=== PATIENT | male | born 1940 | race Caucasian/White ===

== ENCOUNTER → 2016-07-19 | Outpatient (CLI) | payer MEDICARE ==
--- NOTE | 2016-07-19 13:46 | XR ---
EXAMINATION TYPE: XR chest 2V DATE OF EXAM: 07/19/2016 12:29 PM COMPARISON: None HISTORY: 76-year-old male chronic thromboembolic disease, hypertension. TECHNIQUE: Frontal and lateral views FINDINGS: Heart is normal size. Aorta within normal limits. Some strandy perihilar atelectasis is noted. No con solidation or pleural effusion. Bridging anterior endplate spondylosis suggesting dish. There is a no dular density at the posterior mid lung on the lateral view. IMPRESSION: 1. Strandy areas of atelectasis. No acute cardiopulmonary process. 2. Unable to exclude a posterior midlung pulmonary nodule as seen on the lateral view. A contrast enh anced CT could further evaluate. If there is question of chronic thromboembolic disease, the exam cou ld be performed as a CTA.
--- NOTE | 2016-07-19 15:16 | NM ---
EXAMINATION TYPE: NM pul vent and perfuse DATE OF EXAM: 07/19/2016 2:27 PM COMPARISON: Correlation radiograph same day HISTORY: 76-year-old male chronic thromboembolic hypertension. TECHNIQUE: Utilizing inhalation of 71.1 mCi Tc 99m DTPA aerosol and intravenous injection of 5.5 mCi of Tc 99m MAA, ventilation and perfusion images are acquired post injection in multiple projections. Given patient's history of pulmonary arterial hypertension, low particle protocol was utilized. 100, 000 to 200,000 particles were administered. FINDINGS: Normal radiotracer distribution is noted in the lungs. No mismatched perfusion defect is identified. IMPRESSION: Low probability for pulmonary embolus.
== END | disposition home or self-care (01) ==
LOC: RADNMMAIN 12:10
PROVIDERS: ATTEND Internal Medicine
DX: J98.11 Atelectasis (principal)
CPT/HCPCS: 71020; 78582; A9540; A9567

== ENCOUNTER → 2017-10-22 | Outpatient (CLI) | payer MEDICARE ==
[2017-10-22 14:32] LABS: Basophils # (A) 0.1 k/uL (0-0.2); Basophils % (A) 1 %; Eosinophils # (A) 0.2 k/uL (0-0.7); Eosinophils % (A) 2 %; HCT 43.6 % (39.0-53.0); HGB 14.6 gm/dL (13.0-17.5); Lymphocytes # (A) 1.3 k/uL (1.0-4.8); Lymphocytes % (A) 20 %; MCH 30.1 pg (25.0-35.0); MCHC 33.5 g/dL (31.0-37.0); MCV 89.8 fL (80.0-100.0); Mean Platelet Volume 7.1; Monocytes # (A) 0.4 k/uL (0-1.0); Monocytes % (A) 6 %; Neutrophils # (A) 4.7 k/uL (1.3-7.7); Neutrophils % (A) 69 %; Platelet Count 228 k/uL (150-450); RBC 4.85 m/uL (4.30-5.90); RDW 13.7 % (11.5-15.5); WBC 6.8 k/uL (3.8-10.6)
[2017-10-22 14:40] LABS: INR 1.1 (<1.2); Partial Thromboplastin Time 23.3 sec (22.0-30.0); Prothrombin Time 10.5 sec (9.0-12.0)
== END | disposition home or self-care (01) ==
LOC: LABPAT 13:48
PROVIDERS: ATTEND Anesthesiology
DX: Z01.812 Encounter for preprocedural laboratory examination (principal)
CPT/HCPCS: 36415; 84132; 85025; 85610; 85730

== ENCOUNTER 2017-10-26 14:00 | Inpatient (IN) | payer MEDICARE ==
[2017-10-26] MEDS ORDERED: NALOXONE 0.4 MG/ML 1 ML VIAL IV PRN (14:53)
[2017-10-26] MEDS ORDERED: ACETAMINOPHEN TAB 325 MG TAB PO PRN (14:53)
[2017-10-26] MEDS ORDERED: ALLOPURINOL 100 MG TAB PO PRN (14:56)
[2017-10-26] MEDS ORDERED: SODIUM CHLORIDE 0.9% 1,000 ML IV STA (14:57)
[2017-10-26] MEDS: CARVEDILOL 12.5 MG TAB PO SCH (17:21)
--- NOTE | 2017-10-26 18:12 | P.HPIM ---
History of Present Illness H&P Date: 10/26/17 Chief Complaint: SOB 77-year-old male with history of multiple medical problems as detailed below presented to the hospital for elective surgery. He was supposed to have Zulay fundoplication but because of abnormal lab work I was called by the surgeon to admit the patient to the hospital for further evaluation and management. His creatinine was found to be elevated at 2.5 which is unknown for the patient. Patient is not aware of any kidney issues in the past. Patient told me that he has been having progressively worsening exertional shortness of breath, dizziness and weakness over the last several years but symptoms are especially worse over the last several days/weeks. Patient is not able to walk even a block without having the symptoms. He was not evaluated for these symptoms in the past. He denied having any chest pain on exertion. No palpitations. Acid reflux symptoms have been bothering him lately and that is why he was going to have the surgery. He also has chronic nausea and dyspepsia but no vomiting. Of note patient was diagnosed with pulmonary embolism 5 years ago and he has been taking a blood thinner since then. He denied any syncope, loss of consciousness, blurry or double vision, urinary symptoms, diarrhea, focal weakness or numbness. Review of Systems 12 point review of system performed, negative except HPI Past Medical History Past Medical History: Blood Disorder, GERD/Reflux, Hyperlipidemia, Hypertension , Pulmonary Embolus (PE), Sleep Apnea/CPAP/BIPAP Additional Past Medical History / Comment(s): gout, occasional heart palipitations. factor V-liden, swelling on legs on occasion, cpap, arthritis, hiatal hernia, dizzy when bending over History of Any Multi-Drug Resistant Organisms: None Reported Past Surgical History: Cholecystectomy, Heart Catheterization Additional Past Surgical History / Comment(s): rt cataract surgery, Past Anesthesia/Blood Transfusion Reactions: Motion Sickness Additional Past Anesthesia/Blood Transfusion Reaction / Comment(s): clausterphobia Smoking Status: Never smoker Past Alcohol Use History: Occasional - Past Family History Brother(s) Family Medical History: Cancer Additional Family Medical History / Comment(s): 3 brothers with cancer-2 passed from cancer. 1 brother with factor V Father Family Medical History: No Reported History Additional Family Medical History / Comment(s): at age 90 from old age Mother Family Medical History: Hypertension, Myocardial Infarction ([place]) Additional Family Medical History / Comment(s): gout. mom at ge 75 Medications and Allergies Home Medications Medication Instructions Recorded Confirmed Type Allopurinol [Zyloprim] 100 mg PO Q48H 10/18/17 10/26/17 History Carvedilol [Coreg] 25 mg PO BID 10/18/17 10/26/17 History Cholecalciferol (Vitamin D3) 2,000 unit PO DAILY 10/18/17 10/26/17 History [Vitamin D3] Fenofibrate Nanocrystallized 145 mg PO DAILY 10/18/17 10/26/17 History [Fenofibrate] Ferrous Sulfate [Feosol] 325 mg PO BID 10/18/17 10/26/17 History Folic Acid 0.8 mg PO DAILY 10/18/17 10/26/17 History Furosemide [Lasix] 40 mg PO DAILY 10/18/17 10/26/17 History Rivaroxaban [Xarelto] 20 mg PO DAILY 10/18/17 10/26/17 History Spironolactone [Aldactone] 50 mg PO DAILY 10/18/17 10/26/17 History Vitamin B Complex 1 cap PO DAILY 10/18/17 10/26/17 History Valsartan [Diovan] 320 mg PO DAILY 10/26/17 10/26/17 History Allergies Allergy/AdvReac Type Severity Reaction Status Date / Time No Known Allergies Allergy Verified 10/26/17 16:04 Physical Exam Vitals: Vital Signs Temp Pulse Resp BP Pulse Ox 10/26/17 15:00 97.2 F L 73 16 102/61 94 L Intake and Output 10/26/17 10/26/17 10/26/17 06:59 14:59 22:59 Other: Weight 102.7 kg Constitutional: No acute distress, conversant, pleasant Eyes:Anicteric sclerae, moist conjunctiva, no lid-lag, PERRLA, ENMT: Oropharynx clear, no erythema, exudates Neck: Supple, FROM, no masses, or JVD, No carotid bruits, No thyromegaly Lungs: Clear to auscultation, Clear to percussion, Normal respiratory effort, no accessory muscle use Cardiovascular: Heart regular in rate and rhythm, No murmurs, gallops, or rubs, No peripheral edema Abdominal: Soft, Nontender, no guarding, rebound or rigidity, Normoactive bowel sounds, No hepatomegaly, No splenomegaly, No palpable mass Skin: Normal temperature, tone, texture, turgor, no induration, No subcutaneous nodules, No rash, lesions, No ulcers Extremities: No digital cyanosis, No clubbing, Pedal pulses intact and symmetrical, Radial pulses intact and symmetrical, No calf tenderness Psychiatric: Alert and oriented to person, place and time, appropriate affect, intact judgement Neuro: Muscles Strength 5/5 in all 4 extremities, Sensation to light touch grossly present throughout, Cranial nerves II-XII grossly intact, no focal sensory deficits Thrombosis Risk Factor Assmnt - Choose All That Apply Any of the Below Risk Factors Present?: Yes Each Factor Represents 1 point: Medical pt on bed rest Other Risk Factors: Yes Each Risk Factor Represents 3 Points: Age 75 years or older Other congenital or acquired thrombophilia - If yes, enter type in comment: No Thrombosis Risk Factor Assessment Total Risk Factor Score: 4 Thrombosis Risk Factor Assessment Level: Moderate Risk Assessment and Plan Plan: Shortness of breath, dizziness and weakness Echocardiogram reviewed from 2 years ago, EF was within normal limits but showed pulmonary hypertension, moderate which could be causing patient symptoms Obtain chest x-ray, EKG, troponin, BNP Cardiology consult and pulmonary consult Obtain records from Dr. Johnson's office Renal failure Unclear if acute or chronic Obtain records from primary care physician's office, discussed with nurse IV fluids Avoid nephrotoxic medications Hold Lasix, spironolactone and valsartan Essential hypertension Continue Coreg, hold valsartan and diuretics Monitor blood pressure History of factor V Leiden/history of PE Continue xarelto GERD/Reflux, Hyperlipidemia, gout Stable Resume home meds
--- NOTE | 2017-10-26 19:11 | P.CNPUL ---
History of Present Illness Consult date: 10/26/17 Reason for consult: dyspnea History of present illness: This patient is 77 and has symptomatic hiatal hernia. The patient was supposed to have an outpatient Zulay fundoplication today. Blood work was done and the patient was found to be in acute kidney failure with a creatinine of 2.5 and for that reason the patient was referred and admitted to the hospital and pulmonary cusp station was requested as the patient was complaining of some increased shortness of breath. No chest pain. He is currently on room air. No cough sputum production chest tightness or wheezing. He has noted to be slightly more short of breath over the past few days. No aspiration. The patient has been taken only liquid diet and same time his oral intake has diminished and the patient is also on accommodation of Lasix and Aldactone. He is not aware of any previous history of kidney disease or disorder. He has not taken any form of nonsteroidal anti-inflammatory medications. He has normal coronaries based on a previous cardiac catheterization that showed no coronary artery disease. He has a history of obstructive sleep apnea, severe maintained on CPAP at a pressure of 11 cm of water. He has a remote history of DVT and pulmonary embolism and has been found to have factor V Leyden and his last episode was approximately 5 years ago and since then the patient has been on long-term anticoagulation is currently on Xarelto. His other comorbidities include hypertension, hyperlipidemia and acid reflux. No reported aspiration.He is resting comfortably in bed. His chest x-ray shows small lung volumes without any acute abnormalities noted. No airspace disease per no pneumothorax. No pleural effusion. He is known to have hypertension and preoperatively the patient was seen by Dr. Philip on 08/22/2017 and the patient was given clearance for the surgery. Review of Systems A 12 point review of system was done and the positive findings are almost above history of present illness Past Medical History Past Medical History: Blood Disorder, GERD/Reflux, Hyperlipidemia, Hypertension , Pulmonary Embolus (PE), Sleep Apnea/CPAP/BIPAP Additional Past Medical History / Comment(s): Factor V Leyden, previous history of DVT and pulmonary embolism, obstructive sleep apnea with an AHI of 43 currently on scene at a pressure of 11, hypertension, hyperlipidemia, acid reflux, hiatal hernia,, gout History of Any Multi-Drug Resistant Organisms: None Reported Past Surgical History: Cholecystectomy, Heart Catheterization Additional Past Surgical History / Comment(s): rt cataract surgery, Past Anesthesia/Blood Transfusion Reactions: Motion Sickness Additional Past Anesthesia/Blood Transfusion Reaction / Comment(s): clausterphobia Smoking Status: Never smoker Past Alcohol Use History: Occasional - Past Family History Brother(s) Family Medical History: Cancer Additional Family Medical History / Comment(s): 3 brothers with cancer-2 passed from cancer. 1 brother with factor V Father Family Medical History: No Reported History Additional Family Medical History / Comment(s): at age 90 from old age Mother Family Medical History: Hypertension, Myocardial Infarction ([place]) Additional Family Medical History / Comment(s): gout. mom at ge 75 Medications and Allergies Home Medications Medication Instructions Recorded Confirmed Type Allopurinol [Zyloprim] 100 mg PO Q48H 10/18/17 10/26/17 History Carvedilol [Coreg] 25 mg PO BID 10/18/17 10/26/17 History Cholecalciferol (Vitamin D3) 2,000 unit PO DAILY 10/18/17 10/26/17 History [Vitamin D3] Fenofibrate Nanocrystallized 145 mg PO DAILY 10/18/17 10/26/17 History [Fenofibrate] Ferrous Sulfate [Feosol] 325 mg PO BID 10/18/17 10/26/17 History Folic Acid 0.8 mg PO DAILY 10/18/17 10/26/17 History Furosemide [Lasix] 40 mg PO DAILY 10/18/17 10/26/17 History Rivaroxaban [Xarelto] 20 mg PO DAILY 10/18/17 10/26/17 History Spironolactone [Aldactone] 50 mg PO DAILY 10/18/17 10/26/17 History Vitamin B Complex 1 cap PO DAILY 10/18/17 10/26/17 History Valsartan [Diovan] 320 mg PO DAILY 10/26/17 10/26/17 History Allergies Allergy/AdvReac Type Severity Reaction Status Date / Time No Known Allergies Allergy Verified 10/26/17 16:04 Physical Exam Vitals: Vital Signs Temp Pulse Resp BP Pulse Ox 10/26/17 15:00 97.2 F L 73 16 102/61 94 L Intake and Output 10/26/17 10/26/17 10/26/17 06:59 14:59 22:59 Other: Weight 102.7 kg The patient appeared well nourished and normally developed. Vital signs as documented. Head exam is unremarkable. No scleral icterus or corneal arcus noted. Neck is without jugular venous distension, thyromegaly, or carotid bruits. Carotid upstrokes are brisk bilaterally. Lungs are clear to auscultation and percussion. Cardiac exam reveals the PMI to be normally sized and situated. Rhythm is regular. First and second heart sounds normal. No murmurs, rubs or gallops. Abdominal exam reveals normal bowel sounds, no masses , no organomegaly and no aortic enlargement. Extremities are nonedematous and both femoral and pedal pulses are normal.Examination of the skin revealed no evidence of significant rashes, suspicious appearing nevi or other concerning lesions. Neurologic the patient is awake and alert and is no focal neurological deficit. Results - Diagnostic Findings Chest x-ray: image reviewed Assessment and Plan Plan: Assessment 1 acute kidney injury possibly due to intravascular volume depletion dehydration. The patient was taking mainly liquid diet and he was not keeping up with his oral intake as the patient was also taken a combination of diuretics and volume of Lasix and Aldactone. Doubt any urinary retention. We' ll need an ultrasound the kidneys. The patient is being hydrated with IV fluids. We'll monitor renal function and electrolytes. 2 shortness of breath secondary to above, chest x-rays clear and the patient is oxygenating well 3 obstructive sleep apnea with an AHI of 43 currently on CPAP at a pressure of 11 4 hypertension 5 previous history of DVT and pulmonary embolism maintained on Xarelto on outpatient basis 6 factor V Leyden 7 acid reflux and hiatal hernia awaiting Zulay fundoplication plan Will monitor renal function. Continue IV fluids. Monitor urine output. Obtain ultrasound the kidneys no improvement in kidney function with the next 3- 4 hours. Hold diuretics for now. Avoid nephrotoxic agents. Meanwhile, no active pulmonary issues. Chest x-ray was reviewed. Continue with the Xarelto with special attention to his renal functions knowing that the patient's GFR has dropped and we need to discontinue the Xarelto and changing to an alternative anticoagulants specially if there is any drop or further drop in the GFR. Anticipate improvement in renal function within next 24 hours. We'll continue to follow. Hemodynamically stable. Asked the patient to bring in his own CPAP machine from home for use here in the hospital.
--- NOTE | 2017-10-26 19:12 | XR ---
EXAMINATION: XR chest 2V DATE AND TIME: 10/26/2017 6:47 PM ORDERING PROVIDER: Marlene Mckeon MD CLINICAL INDICATION: sob TECHNIQUE: PA and lateral COMPARISON: 07/19/2016 DESCRIPTION: The lungs are clear. The pleural spaces are negative. The cardiac silhouette is not enlarged. The mediastinal and pleural silhouettes are unremarkable. The skeletal structures are intact without focal findings. The soft tissues are unremarkable. IMPRESSION: NO ACUTE PROCESS.
[2017-10-26] MEDS ORDERED: SODIUM CHLORIDE 0.9% 1,000 ML IV ONE (20:08)
[2017-10-27] MEDS ORDERED: CALCIUM CARBONATE 500 MG CHEWABLE PO PRN (00:01)
[2017-10-27 06:28] LABS: Basophils % (A) 0 %; Eosinophils % (A) 0 %; HGB 12.8 gm/dL (13.0-17.5); Lymphocytes # (A) 0.6 k/uL (1.0-4.8); Lymphocytes % (A) 8 %; MCH 30.2 pg (25.0-35.0); MCHC 33.7 g/dL (31.0-37.0); MCV 89.6 fL (80.0-100.0); Mean Platelet Volume 7.5; Monocytes # (A) 0.4 k/uL (0-1.0); Monocytes % (A) 6 %; Neutrophils # (A) 6.1 k/uL (1.3-7.7); Neutrophils % (A) 85 %; Platelet Count 192 k/uL (150-450); RBC 4.25 m/uL (4.30-5.90); RDW 13.4 % (11.5-15.5); WBC 7.1 k/uL (3.8-10.6)
[2017-10-27 06:56] LABS: Calcium 9.3 mg/dL (8.4-10.2); Magnesium 2.1 mg/dL (1.6-2.3); Phosphorus 3.2 mg/dL (2.5-4.5); Potassium 5.4 mmol/L (3.5-5.1)
--- NOTE | 2017-10-27 09:23 | P.NPCON ---
History of Present Illness - Reason for Consult acute renal failure - History of Present Illness Reason for consultation: Acute kidney injury History of present illness: Patient is a 77-year-old male seen in consultation for acute kidney injury. Patient denies any history of kidney disease. Unclear as to what his baseline renal function is. Patient was scheduled to get Zulay fundoplication done as an outpatient but due to acute kidney injury the procedure was canceled. His creatinine was elevated at 2.5. Patient states he's been on liquid diet for the last 13 days. He denies any vomiting or diarrhea. He did feel lightheaded and a little dizzy yesterday. He denies use of NSAIDs. He denies any family history of renal disease. Admits to good urine output. No hematuria or dysuria. He does admit to taking antihypertensives and diuretics at home. He is maintained on IV fluids. Creatinine is down to 1.7 today. Vital signs are stable. General: The patient appeared well nourished and normally developed. HEENT: Head exam is unremarkable. Neck is without jugular venous distension. LUNGS: Lungs are clear to auscultation and percussion. Breath sounds decreased. HEART: Rate and Rhythm are regular. First and second heart sounds normal. No murmurs, rubs or gallops. ABDOMEN: Abdominal exam reveals normal bowel sounds. Non-tender and non- distended. No evidence of peritonitis. EXTREMITITES: No clubbing, cyanosis, or edema. Past Medical History Past Medical History: Blood Disorder, GERD/Reflux, Hyperlipidemia, Hypertension , Pulmonary Embolus (PE), Sleep Apnea/CPAP/BIPAP Additional Past Medical History / Comment(s): Factor V Leyden, previous history of DVT and pulmonary embolism, obstructive sleep apnea with an AHI of 43 currently on scene at a pressure of 11, hypertension, hyperlipidemia, acid reflux, hiatal hernia,, gout History of Any Multi-Drug Resistant Organisms: None Reported Past Surgical History: Cholecystectomy, Heart Catheterization Additional Past Surgical History / Comment(s): rt cataract surgery, Past Anesthesia/Blood Transfusion Reactions: Motion Sickness Additional Past Anesthesia/Blood Transfusion Reaction / Comment(s): clausterphobia Smoking Status: Never smoker Past Alcohol Use History: Occasional - Past Family History Brother(s) Family Medical History: Cancer Additional Family Medical History / Comment(s): 3 brothers with cancer-2 passed from cancer. 1 brother with factor V Father Family Medical History: No Reported History Additional Family Medical History / Comment(s): at age 90 from old age Mother Family Medical History: Hypertension, Myocardial Infarction ([place]) Additional Family Medical History / Comment(s): gout. mom at ge 75 Medications and Allergies Home Medications Medication Instructions Recorded Confirmed Type Allopurinol [Zyloprim] 100 mg PO Q48H 10/18/17 10/26/17 History Carvedilol [Coreg] 25 mg PO BID 10/18/17 10/26/17 History Cholecalciferol (Vitamin D3) 2,000 unit PO DAILY 10/18/17 10/26/17 History [Vitamin D3] Fenofibrate Nanocrystallized 145 mg PO DAILY 10/18/17 10/26/17 History [Fenofibrate] Ferrous Sulfate [Feosol] 325 mg PO BID 10/18/17 10/26/17 History Folic Acid 0.8 mg PO DAILY 10/18/17 10/26/17 History Furosemide [Lasix] 40 mg PO DAILY 10/18/17 10/26/17 History Rivaroxaban [Xarelto] 20 mg PO DAILY 10/18/17 10/26/17 History Spironolactone [Aldactone] 50 mg PO DAILY 10/18/17 10/26/17 History Vitamin B Complex 1 cap PO DAILY 10/18/17 10/26/17 History Valsartan [Diovan] 320 mg PO DAILY 10/26/17 10/26/17 History Allergies Allergy/AdvReac Type Severity Reaction Status Date / Time No Known Allergies Allergy Verified 10/26/17 22:43 Physical Exam Vitals: Vital Signs Temp Pulse Resp BP Pulse Ox 10/27/17 03:10 97.5 F L 80 18 103/63 95 10/26/17 23:10 97.7 F 86 18 84/50 91 L 10/26/17 21:31 88/54 10/26/17 20:08 74/42 10/26/17 19:50 96.6 F L 80 18 84/45 94 L 10/26/17 19:45 74/42 10/26/17 15:00 97.2 F L 73 16 102/61 94 L Intake and Output 10/26/17 10/27/17 10/27/17 22:59 06:59 14:59 Intake Total 120 Output Total 600 500 Balance -600 -500 120 Intake: Oral 120 Output: Urine 600 500 Other: Weight 102.7 kg 104.2 kg Results - Lab Results Most recent lab results Calcium 9.3 mg/dL (8.4-10.2) 10/27/17 06:07 Phosphorus 3.2 mg/dL (2.5-4.5) 10/27/17 06:07 Magnesium 2.1 mg/dL (1.6-2.3) 10/27/17 06:07 10/27/17 06:07 10/27/17 06:07 Assessment and Plan Plan: Assessment: 1. Nonoliguric acute kidney injury mostly prerenal secondary to hypotension and diuretics. Creatinine was 2.5 on admission and is down to 1.7 today. Unclear as to what his new function is. 2. Metabolic acidosis secondary to acute kidney injury and IV fluids. 3. Benign hypertension. Blood pressures are on the lower side. 4. History of pulmonary hypertension. Plan: Continue normal saline at 75 mL an hour. Follow-up echocardiogram results. Check urinalysis. Avoid nephrotoxic agents and hypotensive episodes. Continue to hold diuretics for now. Repeat electrolytes in the morning. Add oral bicarbonate. Thank you for the consultation. I will continue to follow the patient with you during his hospital stay.
--- NOTE | 2017-10-27 10:02 | P.CRDCN ---
History of Present Illness Consult date: 10/27/17 Requesting physician: Marlene Mckeon Reason for Consult (text): pulmonary hypertension History of present illness: This is a pleasant 77-year-old gentleman with history of obstructive sleep apnea , uses a CPAP, hypertension, pulmonary embolism 5 years ago with factor V Leiden , currently on Xarelto and hiatal hernia. Presented yesterday for an elective Zulay fundoplication which was canceled and patient was admitted due to abnormal laboratory values. His creatinine was found to be elevated at 2.5 which is unknown for the patient. The patient is not aware of any kidney issues in the past. Cardiology was consulted due to shortness of breath that has been ongoing for quite some time and pulmonary hypertension which is moderate. Echo from 2016. Patient also complains of some dizziness and weakness that is intermittent and occurring over the last several years. He apparently has not undergone any evaluation for symptoms of dizziness and weakness the past. He does deny any chest discomfort, palpitations, edema or syncope. Chest x-ray yesterday showed no acute process. Laboratory values from this morning show some improvement with a BUN of 68 and creatinine of 1.7 down from 81 and 2.5. Potassium is 5.4 and hemoglobin 12.8. NT proBNP 291 and troponin negative 1. Upon examination this morning, patient is resting comfortably in bed. He denies complaints of shortness of breath at rest, chest discomfort, dizziness or lightheadedness at this time for nausea and vomiting. The patient was seen by nephrology today and acute kidney injury was felt to be mostly prerenal secondary to hypotension and diuretics and IV fluids of normal saline at 75 mL for an hour we'll continue at this time. Past Medical History Past Medical History: Blood Disorder, GERD/Reflux, Hyperlipidemia, Hypertension , Pulmonary Embolus (PE), Sleep Apnea/CPAP/BIPAP Additional Past Medical History / Comment(s): Factor V Leyden, previous history of DVT and pulmonary embolism, obstructive sleep apnea with an AHI of 43 currently on scene at a pressure of 11, hypertension, hyperlipidemia, acid reflux, hiatal hernia,, gout History of Any Multi-Drug Resistant Organisms: None Reported Past Surgical History: Cholecystectomy, Heart Catheterization Additional Past Surgical History / Comment(s): rt cataract surgery, Past Anesthesia/Blood Transfusion Reactions: Motion Sickness Additional Past Anesthesia/Blood Transfusion Reaction / Comment(s): clausterphobia Smoking Status: Never smoker Past Alcohol Use History: Occasional - Past Family History Brother(s) Family Medical History: Cancer Additional Family Medical History / Comment(s): 3 brothers with cancer-2 passed from cancer. 1 brother with factor V Father Family Medical History: No Reported History Additional Family Medical History / Comment(s): at age 90 from old age Mother Family Medical History: Hypertension, Myocardial Infarction ([place]) Additional Family Medical History / Comment(s): gout. mom at ge 75 Medications and Allergies Home Medications Medication Instructions Recorded Confirmed Type Allopurinol [Zyloprim] 100 mg PO Q48H 10/18/17 10/26/17 History Carvedilol [Coreg] 25 mg PO BID 10/18/17 10/26/17 History Cholecalciferol (Vitamin D3) 2,000 unit PO DAILY 10/18/17 10/26/17 History [Vitamin D3] Fenofibrate Nanocrystallized 145 mg PO DAILY 10/18/17 10/26/17 History [Fenofibrate] Ferrous Sulfate [Feosol] 325 mg PO BID 10/18/17 10/26/17 History Folic Acid 0.8 mg PO DAILY 10/18/17 10/26/17 History Furosemide [Lasix] 40 mg PO DAILY 10/18/17 10/26/17 History Rivaroxaban [Xarelto] 20 mg PO DAILY 10/18/17 10/26/17 History Spironolactone [Aldactone] 50 mg PO DAILY 10/18/17 10/26/17 History Vitamin B Complex 1 cap PO DAILY 10/18/17 10/26/17 History Valsartan [Diovan] 320 mg PO DAILY 10/26/17 10/26/17 History Allergies Allergy/AdvReac Type Severity Reaction Status Date / Time No Known Allergies Allergy Verified 10/26/17 22:43 Physical Exam Vitals: Vital Signs Temp Pulse Resp BP Pulse Ox 10/27/17 03:10 97.5 F L 80 18 103/63 95 10/26/17 23:10 97.7 F 86 18 84/50 91 L 10/26/17 21:31 88/54 10/26/17 20:08 74/42 10/26/17 19:50 96.6 F L 80 18 84/45 94 L 10/26/17 19:45 74/42 10/26/17 15:00 97.2 F L 73 16 102/61 94 L Intake and Output 10/26/17 10/27/17 10/27/17 22:59 06:59 14:59 Intake Total 120 Output Total 600 500 Balance -600 -500 120 Intake: Oral 120 Output: Urine 600 500 Other: Weight 102.7 kg 104.2 kg PHYSICAL EXAMINATION: HEENT: Head is atraumatic, normocephalic. Pupils equal, round. Neck is supple. There is no elevated jugular venous pressure. HEART EXAMINATION: Heart sounds regular, S1 and S2 normal. No murmur or gallop heard. CHEST EXAMINATION: Lungs are clear to auscultation and precussion. No chest wall tenderness is noted on palpation or with deep breathing. ABDOMEN: Soft, nontender. Bowel sounds are heard. No organomegaly noted. EXTREMITIES: 2+ peripheral pulses with no evidence of peripheral edema and no calf tenderness noted. NEUROLOGIC patient is awake, alert and oriented x3. . Results 10/27/17 06:07 10/27/17 06:07 Cardiac Enzymes 10/26/17 Range/Units 15:03 Troponin I <0.012 (0.000-0.034) ng/mL CBC 10/27/17 Range/Units 06:07 WBC 7.1 (3.8-10.6) k/uL RBC 4.25 L (4.30-5.90) m/uL Hgb 12.8 L (13.0-17.5) gm/dL Hct 38.0 L (39.0-53.0) % Plt Count 192 (150-450) k/uL Comprehensive Metabolic Panel 10/27/17 Range/Units 06:07 Sodium 136 L (137-145) mmol/L Potassium 5.4 H (3.5-5.1) mmol/L Chloride 107 (98-107) mmol/L Carbon Dioxide 20 L (22-30) mmol/L BUN 68 H (9-20) mg/dL Creatinine 1.70 H (0.66-1.25) mg/dL Glucose 131 H (74-99) mg/dL Calcium 9.3 (8.4-10.2) mg/dL Current Medications Generic Name Dose Route Start Last Admin Trade Name Freq PRN Reason Stop Dose Admin Acetaminophen 650 mg 10/26/17 14:53 Tylenol Tab PO Q6HR PRN Mild Pain or Fever > 100.5 Allopurinol 100 mg 10/26/17 14:56 Zyloprim PO DAILY PRN gout Calcium Carbonate/Glycine 1,000 mg 10/27/17 00:01 10/27/17 00:12 Tums PO 1,000 mg QID PRN Administration Heartburn Carvedilol 25 mg 10/26/17 17:30 10/26/17 17:21 Coreg PO 25 mg AC-BID CLARIBEL Administration Cholecalciferol 2,000 unit 10/27/17 09:00 Vitamin D3 PO DAILY CLARIBEL Fenofibrate 160 mg 10/27/17 09:00 Lofibra PO DAILY CLARIBEL Naloxone HCl 0.2 mg 10/26/17 14:53 Narcan IV Q2M PRN Opioid Reversal Rivaroxaban 20 mg 10/27/17 09:00 Xarelto PO DAILY CLARIBEL Sodium Bicarbonate 650 mg 10/27/17 09:30 Sodium Bicarbonate Tab PO BID CLARIBEL Intake and Output 10/26/17 10/27/17 10/27/17 22:59 06:59 14:59 Intake Total 120 Output Total 600 500 Balance -600 -500 120 Intake: Oral 120 Output: Urine 600 500 Other: Weight 102.7 kg 104.2 kg 10/27/17 06:07 10/27/17 06:07 Assessment and Plan Assessment: #1 acute kidney injury secondary to hypotension and diuretics #2 symptoms of dizziness and weakness, likely secondary to hypotension as well #3 metabolic acidosis secondary to acute kidney injury #4 hypertension, currently hypotensive #5 history of pulmonary embolism and factor V Leiden #6 symptoms of shortness of breath with exertion #7 moderate pulmonary hypertension per echo report from 2016 #8 obstructive sleep apnea, uses CPAP at home Plan: From cardiology's perspective we will review 2-D echo with Doppler. Continue to monitor blood pressures closely. Obtain orthostatic vital signs. Monitor closely for bradycardia as a cause for dizziness and weakness. Follow renal function and electrolytes. Continue to monitor the patient provide further recommendations accordingly. LIABILITY CLAIMS ADJUSTER note has been reviewed, I agree with a documented findings and plan of care. Patient was seen and examined.
[2017-10-27] MEDS: RIVAROXABAN 20 MG TAB PO SCH (10:24)
[2017-10-27] MEDS: CHOLECALCIFEROL 1,000 UNIT TAB PO SCH (10:25)
[2017-10-27] MEDS: FENOFIBRATE 160 MG TAB PO SCH (10:25)
[2017-10-27] MEDS: CARVEDILOL 12.5 MG TAB PO SCH (10:59)
[2017-10-27 11:44] LABS: Glucose,Whole Blood 150 mg/dL (75-99)
[2017-10-27] MEDS ORDERED: SILDENAFIL 20 MG TAB PO SCH (12:00)
[2017-10-27] MEDS: SODIUM BICARBONATE TAB 650 MG TAB PO SCH ×2 (12:35→21:13)
--- NOTE | 2017-10-27 13:06 | ECHOF ---
Referral Reason:Hx of pulmonary hypertension, sob MEASUREMENTS -------- HEIGHT: 177.8 cm WEIGHT: 103.9 kg BP: 103/63 IVSd: 1.3 cm (0.6 - 1.1) LVIDd: 4.5 cm (3.9 - 5.3) LVPWd: 1.3 cm (0.6 - 1.1) IVSs: 1.5 cm LVIDs: 2.7 cm LVPWs: 1.4 cm LAESV Index (A-L): 27.38 ml/m Ao Diam: 3.9 cm (2.0 - 3.7) AV Cusp: 2.2 cm (1.5 - 2.6) LA Diam: 4.0 cm (2.7 - 3.8) MV E Durga: 0.89 m/s MV DecT: 406 ms MV A Durga: 1.24 m/s MV E/A Ratio: 0.72 RAP: 5.00 mmHg RVSP: 29.89 mmHg FINDINGS -------- Sinus rhythm. This was a technically adequate study. The left ventricular size is normal. There is mild concentric left ventricular hypertrophy. Overa ll left ventricular systolic function is normal with, an EF between 55 - 60 %. The right ventricle is normal in size and function. Normal LA size by volume 22+/-6 ml/m2. The right atrium is normal in size. There is mild aortic valve sclerosis. Trace to mild aortic regurgitation. There is no evidence of aortic stenosis. The mitral valve leaflets are mildly thickened. There is trace to mild mitral regurgitation. Mild tricuspid regurgitation present. Right ventricular systolic pressure is normal at < 35 mmHg. There is no evidence of pulmonary hypertension. Trace/mild (physiologic) pulmonic regurgitation. The aortic root size is normal. Normal inferior vena cava with normal inspiratory collapse consistent with estimated right atrial pre ssure of 5 mmHg. There is no pericardial effusion. CONCLUSIONS -------- 1. Sinus rhythm. 2. This was a technically adequate study. 3. The left ventricular size is normal. 4. There is mild concentric left ventricular hypertrophy. 5. Overall left ventricular systolic function is normal with, an EF between 55 - 60 %. 6. Normal LA size by volume 22+/-6 ml/m2. 7. There is mild aortic valve sclerosis. 8. Trace to mild aortic regurgitation. 9. There is no evidence of aortic stenosis. 10. The mitral valve leaflets are mildly thickened. 11. There is trace to mild mitral regurgitation. 12. Mild tricuspid regurgitation present. 13. Right ventricular systolic pressure is normal at < 35 mmHg. 14. There is no evidence of pulmonary hypertension. 15. Trace/mild (physiologic) pulmonic regurgitation. 16. The aortic root size is normal. 17. There is no pericardial effusion. CONSTRUCTION EQUIPMENT OVERHAULER: Brent Garrison RDCS
--- NOTE | 2017-10-27 13:10 | P.PN ---
Subjective Progress Note Date: 10/27/17 The patient is a 77-year-old male who was scheduled to undergo paraesophageal hiatal hernia repair yesterday. his case was cancelled secondary to acute renal failure. He reports feeling well today. No nausea or vomiting, fevers or chills. He is tolerating diet. He has been seen by pulmonary and nephrology. No reports of abdominal pain. Objective - Vital Signs Vital signs: Vital Signs Temp 97.5 F L 10/27/17 03:10 Pulse 80 10/27/17 03:10 Resp 18 10/27/17 03:10 BP 103/63 10/27/17 03:10 Pulse Ox 95 10/27/17 03:10 Intake & Output 10/26/17 10/27/17 10/27/17 18:59 06:59 18:59 Intake Total 360 Output Total 600 500 900 Balance -600 -500 -540 Weight 102.7 kg 104.2 kg Intake: Oral 360 Output: Urine 600 500 900 Other: # Voids 400 # Bowel Movements 0 - Exam GENERAL: Well developed and in no acute distress. Pleasant. HEENT: No sclera icterus. Extraocular movements grossly intact. Moist buccal mucosa. Head is atraumatic, normocephalic. Hears conversational speech. No nasal drainage. NECK: Supple without lymphadenopathy. CHEST: Non-labored respirations and equal bilateral excursions. CARDIOVASCULAR: Regular rate and rhythm. Palpable 2+ radial pulses. ABDOMEN: Soft, nontender. Nondistended. MUSCULOSKELETAL: No clubbing, cyanosis or edema. NEUROLOGIC: No focal or lateralizing signs. PSYCH: Appropriate affect. Alert and oriented to person, place and time. SKIN: Good skin turgor. Well perfused. - Labs CBC & Chem 7: 10/27/17 06:07 10/27/17 06:07 Labs: Abnormal Lab Results - Last 24 Hours (Table) 10/27/17 10/27/17 10/27/17 Range/Units 06:07 06:07 11:39 RBC 4.25 L (4.30-5.90) m/uL Hgb 12.8 L (13.0-17.5) gm/dL Hct 38.0 L (39.0-53.0) % Lymphocytes # 0.6 L (1.0-4.8) k/uL Sodium 136 L (137-145) mmol/L Potassium 5.4 H (3.5-5.1) mmol/L Carbon Dioxide 20 L (22-30) mmol/L BUN 68 H (9-20) mg/dL Creatinine 1.70 H (0.66-1.25) mg/dL Glucose 131 H (74-99) mg/dL POC Glucose (mg/dL) 150 H (75-99) mg/dL Assessment and Plan (1) Acute renal failure Current Visit: Yes Status: Acute Code(s): N17.9 - ACUTE KIDNEY FAILURE, UNSPECIFIED SNOMED Code(s): 45196704 (2) Von Willebrand disease Current Visit: Yes Status: Acute Code(s): D68.0 - VON WILLEBRAND'S DISEASE SNOMED Code(s): 259287568 (3) Ischemic cardiomyopathy Current Visit: Yes Status: Acute Code(s): I25.5 - ISCHEMIC CARDIOMYOPATHY SNOMED Code(s): 045996489 (4) Paraesophageal hiatal hernia Current Visit: Yes Status: Acute Code(s): K44.9 - DIAPHRAGMATIC HERNIA WITHOUT OBSTRUCTION OR GANGRENE SNOMED Code(s): 5400757 (5) 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 Surgical intervention on hold when medically stable. 2. Follow-up as outpatient advised.
--- NOTE | 2017-10-27 15:05 | P.PN ---
Subjective Progress Note Date: 10/27/17 On today's evaluation, the patient is looking well. Has no specific complaints. As mentioned earlier the surgery for hiatal hernia repair was canceled as the patient was found to be in acute renal failure. Renal function is improving and the creatinine is down to 1.7 and patient is currently off diuretics. We noted also some lower blood pressures which we anticipate to improve with IV fluids. His most recent blood pressure is 95/30. Pulse ox is ranging between 90-95% on room air. I had a discussion about the possibility of a secondary pulmonary hypertension on this patient with the hospitalist. Apparently the patient has a echocardiogram in the past that showed some degree of pulmonary hypertension. The patient has obstructive sleep apnea and the patient has had previous history of DVT and pulmonary embolism. The patient is on long-term and to coagulation. If needed, and workup can be completed for secondary pulmonary hypertension outpatient basis. This is not something that needs to be addressed during this current hospital stay. Objective - Vital Signs Vital signs: Vital Signs Temp 97.6 F 10/27/17 08:00 Pulse 90 10/27/17 12:00 Resp 17 10/27/17 12:00 BP 95/50 10/27/17 12:00 Pulse Ox 93 L 10/27/17 12:00 Intake & Output 10/26/17 10/27/17 10/27/17 18:59 06:59 18:59 Intake Total 360 Output Total 600 500 900 Balance -600 -500 -540 Weight 102.7 kg 104.2 kg Intake: Oral 360 Output: Urine 600 500 900 Other: # Voids 400 # Bowel Movements 0 - Exam This patient is 77 and has symptomatic hiatal hernia. The patient was supposed to have an outpatient Zulay fundoplication today. Blood work was done and the patient was found to be in acute kidney failure with a creatinine of 2.5 and for that reason the patient was referred and admitted to the hospital and pulmonary cusp station was requested as the patient was complaining of some increased shortness of breath. No chest pain. He is currently on room air. No cough sputum production chest tightness or wheezing. He has noted to be slightly more short of breath over the past few days. No aspiration. The patient has been taken only liquid diet and same time his oral intake has diminished and the patient is also on accommodation of Lasix and Aldactone. He is not aware of any previous history of kidney disease or disorder. He has not taken any form of nonsteroidal anti-inflammatory medications. He has normal coronaries based on a previous cardiac catheterization that showed no coronary artery disease. He has a history of obstructive sleep apnea, severe maintained on CPAP at a pressure of 11 cm of water. He has a remote history of DVT and pulmonary embolism and has been found to have factor V Leyden and his last episode was approximately 5 years ago and since then the patient has been on long-term anticoagulation is currently on Xarelto. His other comorbidities include hypertension, hyperlipidemia and acid reflux. No reported aspiration.He is resting comfortably in bed. His chest x-ray shows small lung volumes without any acute abnormalities noted. No airspace disease per no pneumothorax. No pleural effusion. He is known to have hypertension and preoperatively the patient was seen by Dr. Philip on 08/22/2017 and the patient was given clearance for the surgery. - Labs CBC & Chem 7: 10/27/17 06:07 10/27/17 06:07 Labs: Abnormal Lab Results - Last 24 Hours (Table) 10/27/17 10/27/17 10/27/17 Range/Units 06:07 06:07 11:39 RBC 4.25 L (4.30-5.90) m/uL Hgb 12.8 L (13.0-17.5) gm/dL Hct 38.0 L (39.0-53.0) % Lymphocytes # 0.6 L (1.0-4.8) k/uL Sodium 136 L (137-145) mmol/L Potassium 5.4 H (3.5-5.1) mmol/L Carbon Dioxide 20 L (22-30) mmol/L BUN 68 H (9-20) mg/dL Creatinine 1.70 H (0.66-1.25) mg/dL Glucose 131 H (74-99) mg/dL POC Glucose (mg/dL) 150 H (75-99) mg/dL Assessment and Plan Plan: Assessment 1 acute kidney injury possibly due to intravascular volume depletion dehydration. Renal function continues to improve in the creatinine is down to 1.7. Borderline hypotensive. Asymptomatic 2 shortness of breath secondary to above, chest x-rays clear and the patient is oxygenating well 3 obstructive sleep apnea with an AHI of 43 currently on CPAP at a pressure of 11 4 hypertension 5 previous history of DVT and pulmonary embolism maintained on Xarelto on outpatient basis 6 factor V Leyden 7 acid reflux and hiatal hernia awaiting Zulay fundoplication 8 pulmonary hypertension, likely secondary nature that may need to be investigated on outpatient basis. Plan We'll leave an official echocardiogram to assess for PA pressures. I do not suggest any treatment for the time being knowing that I anticipate the pulmonary hypertension to be secondary nature. Suggest stopping the sildenafil , which as a monotherapy is not indicated for secondary pulmonary hypertension and furthermore the patient is running a lower blood pressure and this may drop his pressure even further. Continue fluid resuscitation. Monitor renal function. We'll be glad to evaluate his pulmonary hypertension on outpatient basis. Based on my initial evaluation, this seems to be a secondary hypertension probably rates obstructive sleep apnea and previous history of pulmonary embolism.
[2017-10-27] MEDS: SODIUM CHLORIDE 0.9% 1,000 ML IV SCH (16:49)
[2017-10-27 17:01] LABS: Appearance,Urine Clear (Clear); Bilirubin,Urine Negative (Negative); Blood,Urine Negative (Negative); Color,Urine Light Yellow; Glucose,Urine (UA) Negative (Negative); Ketones,Urine Negative (Negative); Leukocyte Esterase,Urine Negative (Negative); Nitrite,Urine Negative (Negative); Protein,Urine Negative (Negative); Specific Gravity,Urine 1.012 (1.001-1.035); Urobilinogen,Urine <2.0 mg/dL (<2.0)
[2017-10-28] MEDS: SODIUM CHLORIDE 0.9% 1,000 ML IV SCH ×2 (04:14→18:02)
[2017-10-28 07:02] LABS: Calcium 8.8 mg/dL (8.4-10.2); Potassium 5.1 mmol/L (3.5-5.1)
--- NOTE | 2017-10-28 09:23 | P.PN ---
Subjective Patient is seen in follow-up for acute kidney injury. Renal function is improving with creatinine down to 1.4 today. Blood pressures are still on the lower side. Oral intake is good. No vomiting or diarrhea. Vital signs are stable. General: The patient appeared well nourished and normally developed. HEENT: Head exam is unremarkable. Neck is without jugular venous distension. LUNGS: Lungs are clear to auscultation and percussion. Breath sounds decreased. HEART: Rate and Rhythm are regular. First and second heart sounds normal. No murmurs, rubs or gallops. ABDOMEN: Abdominal exam reveals normal bowel sounds. Non-tender and non- distended. No evidence of peritonitis. EXTREMITITES: No clubbing, cyanosis, or edema. Objective - Vital Signs Vital signs: Vital Signs Temp 97.0 F L 10/28/17 04:00 Pulse 64 10/28/17 04:00 Resp 16 10/28/17 04:00 BP 108/62 10/28/17 04:00 Pulse Ox 95 10/28/17 04:00 Intake & Output 10/27/17 10/28/17 10/28/17 18:59 06:59 18:59 Intake Total 600 240 Output Total 900 500 Balance -300 -500 240 Weight 105.9 kg Intake: Oral 600 240 Output: Urine 900 500 Other: # Voids 400 1 # Bowel Movements 0 - Labs CBC & Chem 7: 10/27/17 06:07 10/28/17 06:15 Labs: Abnormal Lab Results - Last 24 Hours (Table) 10/27/17 10/28/17 Range/Units 11:39 06:15 Chloride 111 H (98-107) mmol/L BUN 46 H (9-20) mg/dL Creatinine 1.41 H (0.66-1.25) mg/dL POC Glucose (mg/dL) 150 H (75-99) mg/dL Assessment and Plan Plan: Assessment: 1. Nonoliguric acute kidney injury mostly prerenal secondary to hypotension and diuretics. Creatinine was 2.5 on admission and is down to 1.4 today. Unclear as to what his new function is. Urinalysis benign. 2. Metabolic acidosis secondary to acute kidney injury and IV fluids. Improved. 3. Benign hypertension. Blood pressures are on the lower side. Rule out adrenal insufficiency. Plan: Continue normal saline at 75 mL an hour. No significant abnormalities noted on echocardiogram. Avoid nephrotoxic agents and hypotensive episodes. Continue to hold diuretics for now. Repeat electrolytes in the morning. Check cortisol level.
--- NOTE | 2017-10-28 09:58 | P.PN ---
Subjective Progress Note Date: 10/28/17 Principal diagnosis: Pulmonary hypertension This is a pleasant 77-year-old gentleman with history of obstructive sleep apnea , uses a CPAP, hypertension, pulmonary embolism 5 years ago with factor V Leiden , currently on Xarelto and hiatal hernia. Presented yesterday for an elective Zulay fundoplication which was canceled and patient was admitted due to abnormal laboratory values. His creatinine was found to be elevated at 2.5 which is unknown for the patient. The patient is not aware of any kidney issues in the past. Cardiology was consulted due to shortness of breath that has been ongoing for quite some time and pulmonary hypertension which is moderate. Echo from 2016. Patient also complains of some dizziness and weakness that is intermittent and occurring over the last several years. He apparently has not undergone any evaluation for symptoms of dizziness and weakness the past. He does deny any chest discomfort, palpitations, edema or syncope. Chest x-ray yesterday showed no acute process. Laboratory values from this morning show some improvement with a BUN of 68 and creatinine of 1.7 down from 81 and 2.5. Potassium is 5.4 and hemoglobin 12.8. NT proBNP 291 and troponin negative 1. Upon examination this morning, patient is resting comfortably in bed. He denies complaints of shortness of breath at rest, chest discomfort, dizziness or lightheadedness at this time for nausea and vomiting. On follow-up with the patient today, he is feeling better overall. Denies having any chest pain or chest discomfort and the shortness of breath is better. The blood pressure has improved but distal on the low side. Repeated echocardiogram revealed normal LV function with no evidence of any pulmonary hypertension. Objective - Vital Signs Vital signs: Vital Signs Temp 97.0 F L 10/28/17 04:00 Pulse 64 10/28/17 04:00 Resp 16 10/28/17 04:00 BP 108/62 10/28/17 04:00 Pulse Ox 95 10/28/17 04:00 Intake & Output 10/27/17 10/28/17 10/28/17 18:59 06:59 18:59 Intake Total 600 240 Output Total 900 500 Balance -300 -500 240 Weight 105.9 kg Intake: Oral 600 240 Output: Urine 900 500 Other: # Voids 400 1 # Bowel Movements 0 - Constitutional General appearance: Present: no acute distress - Respiratory Respiratory: bilateral: diminished - Cardiovascular Rhythm: regular Heart sounds: normal: S1, S2 - Labs CBC & Chem 7: 10/27/17 06:07 10/28/17 06:15 Labs: Abnormal Lab Results - Last 24 Hours (Table) 10/27/17 10/28/17 Range/Units 11:39 06:15 Chloride 111 H (98-107) mmol/L BUN 46 H (9-20) mg/dL Creatinine 1.41 H (0.66-1.25) mg/dL POC Glucose (mg/dL) 150 H (75-99) mg/dL Assessment and Plan Assessment: Assessment #1 hypertension which has improved #2 acute renal failure which has improved as well #3 history of PE and factor V Leiden #4 obstructive sleep apnea Plan #1 the blood pressure has improved and the kidney function has improved as well. #2 repeated echocardiogram revealed normal LV function without any evidence of pulmonary hypertension #3 continue the current medical regimen including anticoagulation.
--- NOTE | 2017-10-28 10:01 | P.PN ---
Subjective Progress Note Date: 10/28/17 On today's evaluation, the patient is looking well. Has no specific complaints. As mentioned earlier the surgery for hiatal hernia repair was canceled as the patient was found to be in acute renal failure. Renal function is improving and the creatinine is down to 1.7 and patient is currently off diuretics. We noted also some lower blood pressures which we anticipate to improve with IV fluids. His most recent blood pressure is 95/30. Pulse ox is ranging between 90-95% on room air. I had a discussion about the possibility of a secondary pulmonary hypertension on this patient with the hospitalist. Apparently the patient has a echocardiogram in the past that showed some degree of pulmonary hypertension. The patient has obstructive sleep apnea and the patient has had previous history of DVT and pulmonary embolism. The patient is on long-term and to coagulation. If needed, and workup can be completed for secondary pulmonary hypertension outpatient basis. This is not something that needs to be addressed during this current hospital stay. On today's evaluation of 10/28/2017, the patient continues to improve in the creatinine is down to 1.4. Hemodynamically stable. No hypotension. No dizziness. No chest pain. No other significant events overnight. A repeat echocardiogram was done and showed no evidence of any LV dysfunction or pulmonary hypertension. Please refer to the cardiology's note. Objective - Vital Signs Vital signs: Vital Signs Temp 97.0 F L 10/28/17 04:00 Pulse 64 10/28/17 04:00 Resp 16 10/28/17 04:00 BP 108/62 10/28/17 04:00 Pulse Ox 95 10/28/17 04:00 Intake & Output 10/27/17 10/28/17 10/28/17 18:59 06:59 18:59 Intake Total 600 240 Output Total 900 500 Balance -300 -500 240 Weight 105.9 kg Intake: Oral 600 240 Output: Urine 900 500 Other: # Voids 400 1 # Bowel Movements 0 - Exam This patient is 77 and has symptomatic hiatal hernia. The patient was supposed to have an outpatient Zulay fundoplication today. Blood work was done and the patient was found to be in acute kidney failure with a creatinine of 2.5 and for that reason the patient was referred and admitted to the hospital and pulmonary cusp station was requested as the patient was complaining of some increased shortness of breath. No chest pain. He is currently on room air. No cough sputum production chest tightness or wheezing. He has noted to be slightly more short of breath over the past few days. No aspiration. The patient has been taken only liquid diet and same time his oral intake has diminished and the patient is also on accommodation of Lasix and Aldactone. He is not aware of any previous history of kidney disease or disorder. He has not taken any form of nonsteroidal anti-inflammatory medications. He has normal coronaries based on a previous cardiac catheterization that showed no coronary artery disease. He has a history of obstructive sleep apnea, severe maintained on CPAP at a pressure of 11 cm of water. He has a remote history of DVT and pulmonary embolism and has been found to have factor V Leyden and his last episode was approximately 5 years ago and since then the patient has been on long-term anticoagulation is currently on Xarelto. His other comorbidities include hypertension, hyperlipidemia and acid reflux. No reported aspiration.He is resting comfortably in bed. His chest x-ray shows small lung volumes without any acute abnormalities noted. No airspace disease per no pneumothorax. No pleural effusion. He is known to have hypertension and preoperatively the patient was seen by Dr. Philip on 08/22/2017 and the patient was given clearance for the surgery. - Labs CBC & Chem 7: 10/27/17 06:07 10/28/17 06:15 Labs: Abnormal Lab Results - Last 24 Hours (Table) 10/27/17 10/28/17 Range/Units 11:39 06:15 Chloride 111 H (98-107) mmol/L BUN 46 H (9-20) mg/dL Creatinine 1.41 H (0.66-1.25) mg/dL POC Glucose (mg/dL) 150 H (75-99) mg/dL Assessment and Plan Plan: Assessment 1 acute kidney injury possibly due to intravascular volume depletion dehydration. Renal function continues to improve in the creatinine is down to 1.4 2 shortness of breath secondary to above, chest x-rays clear and the patient is oxygenating well and the echocardiogram showed no evidence of any pulmonary hypertension or LV dysfunction. 3 obstructive sleep apnea with an AHI of 43 currently on CPAP at a pressure of 11 4 hypertension 5 previous history of DVT and pulmonary embolism maintained on Xarelto on outpatient basis 6 factor V Leyden 7 acid reflux and hiatal hernia awaiting Zulay fundoplication Plan Continue IV fluids. Continue anticoagulation. Kidney function is improving. Possible discharge either today or tomorrow.
[2017-10-28] MEDS: CHOLECALCIFEROL 1,000 UNIT TAB PO SCH (10:28)
[2017-10-28] MEDS: FENOFIBRATE 160 MG TAB PO SCH (10:28)
[2017-10-28] MEDS: RIVAROXABAN 20 MG TAB PO SCH (10:28)
--- NOTE | 2017-10-28 11:25 | P.PN ---
Subjective Progress Note Date: 10/28/17 The patient is a 77-year-old male who was scheduled to undergo paraesophageal hiatal hernia repair prior to this admission. He reports doing very well. Kidney functions are improving. He still has hypotension. I had an extended discussion with him including the importance of follow-up regarding his kidney function including previous cardiac function. Also upon review of his records, previous history of pulmonary hypertension has been excluded on recent echocardiogram. He denies any chest pain or shortness of breath. Objective - Vital Signs Vital signs: Vital Signs Temp 97.5 F L 10/28/17 10:33 Pulse 61 10/28/17 10:33 Resp 16 10/28/17 10:33 BP 116/70 10/28/17 10:33 Pulse Ox 95 10/28/17 10:33 Intake & Output 10/27/17 10/28/17 10/28/17 18:59 06:59 18:59 Intake Total 600 240 Output Total 900 500 Balance -300 -500 240 Weight 105.9 kg Intake: Oral 600 240 Output: Urine 900 500 Other: # Voids 400 1 # Bowel Movements 0 - Exam GENERAL: Well developed and in no acute distress. Pleasant. HEENT: No sclera icterus. Extraocular movements grossly intact. Moist buccal mucosa. Head is atraumatic, normocephalic. Hears conversational speech. No nasal drainage. NECK: Supple without lymphadenopathy. CHEST: Non-labored respirations and equal bilateral excursions. CARDIOVASCULAR: Regular rate and rhythm. Palpable 2+ radial pulses. ABDOMEN: Soft, nontender. Nondistended. MUSCULOSKELETAL: No clubbing, cyanosis or edema. NEUROLOGIC: No focal or lateralizing signs. PSYCH: Appropriate affect. Alert and oriented to person, place and time. SKIN: Good skin turgor. Well perfused. - Labs CBC & Chem 7: 10/27/17 06:07 10/28/17 06:15 Labs: Abnormal Lab Results - Last 24 Hours (Table) 10/27/17 10/28/17 Range/Units 11:39 06:15 Chloride 111 H (98-107) mmol/L BUN 46 H (9-20) mg/dL Creatinine 1.41 H (0.66-1.25) mg/dL POC Glucose (mg/dL) 150 H (75-99) mg/dL - Imaging and Cardiology Chest x-ray: image reviewed Echocardiogram results reviewed in detail. Chest x-ray also reviewed in detail Assessment and Plan (1) Acute renal failure Current Visit: Yes Status: Acute Code(s): N17.9 - ACUTE KIDNEY FAILURE, UNSPECIFIED SNOMED Code(s): 67062485 (2) Von Willebrand disease Current Visit: Yes Status: Acute Code(s): D68.0 - VON WILLEBRAND'S DISEASE SNOMED Code(s): 918151319 (3) Ischemic cardiomyopathy Current Visit: Yes Status: Acute Code(s): I25.5 - ISCHEMIC CARDIOMYOPATHY SNOMED Code(s): 162539440 (4) Paraesophageal hiatal hernia Current Visit: Yes Status: Acute Code(s): K44.9 - DIAPHRAGMATIC HERNIA WITHOUT OBSTRUCTION OR GANGRENE SNOMED Code(s): 7056191 (5) 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 Prior to any further surgical intervention, patient is advised to follow up with land use planner including metal machine operator as his heart medications has led him to be persistently hypotensive. 2. Surgical intervention on hold at least for 30 days pending additional clearances prior to surgery.
[2017-10-28] MEDS ORDERED: COSYNTROPIN 0.25 MG VIAL IVP ONE (13:00)
--- NOTE | 2017-10-28 13:25 | P.PN ---
Subjective Progress Note Date: 10/28/17 Principal diagnosis: Shortness of breath Feeling better. No chest pain or shortness of breath. No nausea or vomiting. Objective - Vital Signs Vital signs: Vital Signs Temp 97.5 F L 10/28/17 10:33 Pulse 61 10/28/17 10:33 Resp 16 10/28/17 10:33 BP 116/70 10/28/17 10:33 Pulse Ox 95 10/28/17 10:33 Intake & Output 10/27/17 10/28/17 10/28/17 18:59 06:59 18:59 Intake Total 600 240 Output Total 900 500 Balance -300 -500 240 Weight 105.9 kg Intake: Oral 600 240 Output: Urine 900 500 Other: # Voids 400 1 # Bowel Movements 0 - Exam Constitutional: No acute distress, conversant, pleasant Eyes:Anicteric sclerae, moist conjunctiva, no lid-lag, PERRLA, ENMT: Oropharynx clear, no erythema, exudates Neck: Supple, FROM, no masses, or JVD, No carotid bruits, No thyromegaly Lungs: Clear to auscultation, Clear to percussion, Normal respiratory effort, no accessory muscle use Cardiovascular: Heart regular in rate and rhythm, No murmurs, gallops, or rubs, No peripheral edema Abdominal: Soft, Nontender, no guarding, rebound or rigidity, Normoactive bowel sounds, No hepatomegaly, No splenomegaly, No palpable mass Skin: Normal temperature, tone, texture, turgor, no induration, No subcutaneous nodules, No rash, lesions, No ulcers Extremities: No digital cyanosis, No clubbing, Pedal pulses intact and symmetrical, Radial pulses intact and symmetrical, No calf tenderness Psychiatric: Alert and oriented to person, place and time, appropriate affect, intact judgement Neuro: Muscles Strength 5/5 in all 4 extremities, Sensation to light touch grossly present throughout, Cranial nerves II-XII grossly intact, no focal sensory deficits - Labs CBC & Chem 7: 10/27/17 06:07 10/28/17 06:15 Labs: Abnormal Lab Results - Last 24 Hours (Table) 10/28/17 Range/Units 06:15 Chloride 111 H (98-107) mmol/L BUN 46 H (9-20) mg/dL Creatinine 1.41 H (0.66-1.25) mg/dL Assessment and Plan Plan: Shortness of breath, dizziness and weakness Chest x-ray, EKG, troponin, BNP reviewed, within normal limits. Echocardiogram within normal limits. Coreg discontinued as blood pressure is currently borderline Cortisol level only 2, we'll proceed with cosyntropin stimulation test Acute renal failure Improving, nonoliguric Continue IV fluids Avoid nephrotoxic medications Holding Lasix, spironolactone and valsartan D/W Dr Barrera Essential hypertension Continue Coreg, hold valsartan and diuretics Monitor blood pressure History of factor V Leiden/history of PE Continue xarelto GERD/Reflux, Hyperlipidemia, gout Stable Resume home meds
[2017-10-28] MEDS: SODIUM BICARBONATE TAB 650 MG TAB PO SCH (20:45)
[2017-10-29] MEDS: SODIUM CHLORIDE 0.9% 1,000 ML IV SCH (04:24)
[2017-10-29 06:55] LABS: Calcium 8.8 mg/dL (8.4-10.2); Potassium 4.8 mmol/L (3.5-5.1)
--- NOTE | 2017-10-29 08:06 | P.PN ---
Subjective Patient is seen in follow-up for acute kidney injury. Renal function is improving with creatinine down to 1.28 today. Blood pressure normal this morning. Oral intake is good. No vomiting or diarrhea. Vital signs are stable. General: The patient appeared well nourished and normally developed. HEENT: Head exam is unremarkable. Neck is without jugular venous distension. LUNGS: Lungs are clear to auscultation and percussion. Breath sounds decreased. HEART: Rate and Rhythm are regular. First and second heart sounds normal. No murmurs, rubs or gallops. ABDOMEN: Abdominal exam reveals normal bowel sounds. Non-tender and non- distended. No evidence of peritonitis. EXTREMITITES: No clubbing, cyanosis, or edema. Objective - Vital Signs Vital signs: Vital Signs Temp 98.0 F 10/29/17 04:00 Pulse 55 L 10/29/17 04:00 Resp 17 10/29/17 04:00 BP 130/68 10/29/17 04:00 Pulse Ox 95 10/29/17 04:00 Intake & Output 10/28/17 10/29/17 10/29/17 18:59 06:59 18:59 Intake Total 720 825 Output Total 1300 440 Balance -580 385 Weight 105.1 kg Intake: IV 825 Sodium Chloride 0.9% 1, 825 000 ml @ 75 mls/hr IV . [id number] [facility] Rx#:[id number] Oral 720 Output: Urine 1300 440 Other: Voiding Method Toilet Urinal # Voids 1 1 - Labs CBC & Chem 7: 10/27/17 06:07 10/29/17 05:55 Labs: Abnormal Lab Results - Last 24 Hours (Table) 10/29/17 Range/Units 05:55 Chloride 112 H (98-107) mmol/L BUN 28 H (9-20) mg/dL Creatinine 1.28 H (0.66-1.25) mg/dL Glucose 106 H (74-99) mg/dL Assessment and Plan Plan: Assessment: 1. Nonoliguric acute kidney injury mostly prerenal secondary to hypotension and diuretics. Creatinine was 2.5 on admission and is down to 1.28 today. Unclear as to what his new function is. Urinalysis benign. 2. Metabolic acidosis secondary to acute kidney injury and IV fluids. Improved. 3. Benign hypertension. Controlled. Plan: Continue normal saline at 75 mL an hour. No significant abnormalities noted on echocardiogram. Avoid nephrotoxic agents and hypotensive episodes. Continue to hold diuretics and antihypertensives for now. Cortisol level was low but responded well to cosyntropin. Doubt adrenal insufficiency. Discussed with primary team.
[2017-10-29] MEDS: FENOFIBRATE 160 MG TAB PO SCH (08:36)
[2017-10-29] MEDS: CHOLECALCIFEROL 1,000 UNIT TAB PO SCH (08:36)
[2017-10-29] MEDS: RIVAROXABAN 20 MG TAB PO SCH (08:37)
[2017-10-29 08:50] VITALS: BP 128/62; PULSE 67; RESP 16; TEMP 97.3
[2017-10-29] MEDS ORDERED: SODIUM BICARBONATE TAB 650 MG TAB PO SCH (09:00)
--- NOTE | 2017-10-29 09:15 | P.DS ---
Providers Date of admission: 10/26/17 14:27 Expected date of discharge: 10/29/17 Attending physician: Marlene Mckeon MD Consults: 10/26/17 14:54 Consult Physician Routine Consulting Provider: Elena Jose Consult Reason/Comments: renal failure Do you want consulting provider notified?: Yes 10/26/17 14:55 Consult Physician Routine Consulting Provider: Flaco Allan Consult Reason/Comments: sob Do you want consulting provider notified?: Yes Consult Physician Routine Consulting Provider: Shadi Manjarrez Consult Reason/Comments: pulm hypertension Do you want consulting provider notified?: Yes Primary care physician: Stated None Hospital Course: 77-year-old male with history of multiple medical problems as detailed below presented to the hospital for elective surgery. He was supposed to have Zulay fundoplication but because of abnormal lab work I was called by the surgeon to admit the patient to the hospital for further evaluation and management. His creatinine was found to be elevated at 2.5 which is unknown for the patient. Patient is not aware of any kidney issues in the past. Patient told me that he has been having progressively worsening exertional shortness of breath, dizziness and weakness over the last several years but symptoms were especially worse over the last several days/weeks. Patient is not able to walk even a block without having the symptoms. He was not evaluated for these symptoms in the past. He denied having any chest pain on exertion. No palpitations. Acid reflux symptoms have been bothering him lately and that is why he was going to have the surgery. He also has chronic nausea and dyspepsia but no vomiting. Of note patient was diagnosed with pulmonary embolism 5 years ago and he has been taking a blood thinner since then. He denied any syncope, loss of consciousness, blurry or double vision, urinary symptoms, diarrhea, focal weakness or numbness. Patient was admitted to the hospital, he was started on IV fluids. All of his antihypertensive medications were held. His blood pressure was borderline low. His creatinine was 2.5 on admission and it went down nicely with hydration to 1.4 on the day of discharge. Patient was seen by cardiology, pulmonary service because of suspicion for pulmonary hypertension based on echocardiogram he had 2 years ago. However repeat echocardiogram while he was in the hospital was negative for any evidence of pulmonary hypertension. With hydration he felt symptomatically better. He wasn't having any further episodes of dizziness and his weakness improved. He was also seen by nephrology because of the renal failure. Stage Electrician ordered a cortisol level and that was low. Subsequently he had an ACTH stimulation test and that did not reveal any adrenal insufficiency. Patient was counseled regarding blood pressure medications upon discharge. He was told that he was taking too many. Currently is off of all of his blood pressure medications and BP seems to be okay. All of the blood pressure medications were held until he follows up with his primary care physician. Discharge diagnoses Acute renal failure likely secondary to dehydration/prerenal Overmedication and hypotension Plan - Discharge Summary Discharge Rx Participant: No New Discharge Prescriptions: New Acetaminophen Tab [Tylenol] 650 mg PO Q6HR PRN tab PRN Reason: Mild Pain Or Fever > 100.5 Continue Vitamin B Complex 1 cap PO DAILY Rivaroxaban [Xarelto] 20 mg PO DAILY Cholecalciferol (Vitamin D3) [Vitamin D3] 2,000 unit PO DAILY Allopurinol [Zyloprim] 100 mg PO Q48H Ferrous Sulfate [Iron (65 MG Elemental)] 325 mg PO BID Fenofibrate Nanocrystallized [Fenofibrate] 145 mg PO DAILY Folic Acid 0.8 mg PO DAILY Discontinued Spironolactone [Aldactone] 50 mg PO DAILY Furosemide [Lasix] 40 mg PO DAILY Carvedilol [Coreg] 25 mg PO BID Valsartan [Diovan] 320 mg PO DAILY Discharge Medication List Allopurinol [Zyloprim] 100 mg PO Q48H 10/18/17 [History] Cholecalciferol (Vitamin D3) [Vitamin D3] 2,000 unit PO DAILY 10/18/17 [History] Fenofibrate Nanocrystallized [Fenofibrate] 145 mg PO DAILY 10/18/17 [History] Ferrous Sulfate [Iron (65 MG Elemental)] 325 mg PO BID 10/18/17 [History] Folic Acid 0.8 mg PO DAILY 10/18/17 [History] Rivaroxaban [Xarelto] 20 mg PO DAILY 10/18/17 [History] Vitamin B Complex 1 cap PO DAILY 10/18/17 [History] Acetaminophen Tab [Tylenol] 650 mg PO Q6HR PRN tab 10/29/17 [Rx] Follow up Appointment(s)/Referral(s): Shadi Manjarrez MD [STAFF PHYSICIAN] - 11/19/17 4:15 pm (Sunday) Aleyda Larsen MD [STAFF PHYSICIAN] - 11/05/17 (MARLETTE Spoke to dairy husbandry worker. Office will call you with appointment time) Irish Arango MD [REFERRING] - 10/31/17 1:30 pm (Sunday) Adolfo Barrera DO [STAFF PHYSICIAN] - 2 Weeks (Office is closed. Please call to schedule appointment) Patient Instructions/Handouts: Acute Kidney Injury (DC)
== END 2017-10-29 09:55 | disposition home or self-care (01) | DRG 392 ==
LOC: 6SEL 14:27
PROVIDERS: ADMIT Internal Medicine; ATTEND Internal Medicine
DX: K44.9 Diaphragmatic hernia without obstruction or gangrene (principal); N17.9 Acute kidney failure, unspecified; D68.51 Activated protein C resistance; E87.2 Acidosis; D68.0 Von Willebrand disease; I95.9 Hypotension, unspecified; E86.0 Dehydration; E87.5 Hyperkalemia; Z53.9 Procedure and treatment not carried out, unspecified reason; K21.9 Gastro-esophageal reflux disease without esophagitis; E78.5 Hyperlipidemia, unspecified; I10 Essential (primary) hypertension; G47.33 Obstructive sleep apnea (adult) (pediatric); M10.9 Gout, unspecified; F40.240 Claustrophobia; I25.5 Ischemic cardiomyopathy; T44.7X5A Adverse effect of beta-adrenoreceptor antagonists, initial encounter; T46.7X5A Adverse effect of peripheral vasodilators, initial encounter; C44.629 Squamous cell carcinoma of skin of left upper limb, including shoulder; M19.91 Primary osteoarthritis, unspecified site; Z79.01 Long term (current) use of anticoagulants; Z79.899 Other long term (current) drug therapy; Z86.711 Personal history of pulmonary embolism; Z90.49 Acquired absence of other specified parts of digestive tract; Z98.41 Cataract extraction status, right eye; Z86.718 Personal history of other venous thrombosis and embolism; Z82.49 Family history of ischemic heart disease and other diseases of the circulatory system; Z80.9 Family history of malignant neoplasm, unspecified; Z83.2 Family history of diseases of the blood and blood-forming organs and certain disorders involving the immune mechanism; Z83.49 Family history of other endocrine, nutritional and metabolic diseases
CPT/HCPCS: 71046; 80048; 81003; 82533; 83735; 83880; 84100; 84484; 85025; 93306

== ENCOUNTER → 2017-10-26 | Day surgery (SDC) | payer MEDICARE ==
[2017-10-18 14:02] VITALS: BMI 32.5
[~2017-10-26] MED LIST: ACETAMINOPHEN IV (For NPO) 1,000 MG in EMPTY BAG 1 BAG IVPB ONE; DEXAMETHASONE SOD PHOSPHATE 10 MG/ML 1 ML VIAL IV ONE; FENOFIBRATE NANOCRYSTALLIZED 145 MG PO SCH; FERROUS SULFATE 325 MG TAB PO SCH; FOLIC ACID 0.8 MG PO SCH; HEPARIN SODIUM,PORCINE 5,000 UNIT/ML 1 ML VIAL SQ ONE; LACTATED RINGERS 1,000 ML IV ONE; LACTATED RINGERS 1,000 ML IV SCH; LIDOCAINE 1% 20 ML VIAL (10MG/ML) FOR IV START INTRADERMA ONE; MIDAZOLAM 2 MG/2 ML VIAL IV PRN; NON-FORMULARY DRUG (Carvedilol [Coreg] 25 MG) PO SCH; ONDANSETRON 4 MG/2 ML VIAL IVP ONE; SODIUM CHLORIDE 0.9% 1,000 ML IV SCH; ceFAZolin IN SWFI 2 GM/20 ML SYRINGE IVP ONE; fentaNYL (PF) 50 MCG/ML 2 ML AMP IV PRN
--- NOTE | 2017-10-26 08:18 | P.GSHP ---
History of Present Illness H&P Date: 10/26/17 CHIEF COMPLAINT: Paraesophageal hiatal hernia with gastroesophageal reflux disease. HISTORY OF PRESENT ILLNESS: The patient is a 77-year-old male who presents with paraesophageal hiatal hernia. He has completed an esophageal manometry including upper endoscopy workup. Now he presents for surgical intervention. He also completed cardiac risk assessment less than 3 months ago. PAST MEDICAL HISTORY: Please see list. PAST SURGICAL HISTORY: Please see list. MEDICATIONS: Please see list. ALLERGIES: Please see list. SOCIAL HISTORY: No illicit drug use FAMILY HISTORY: No reports of Crohn disease or ulcerative colitis. REVIEW OF ORGAN SYSTEMS: CONSTITUTIONAL: No reports of fevers or chills. GI: Denies any blood in stools or constipation. PHYSICAL EXAM: VITAL SIGNS: Stable GENERAL: Well-developed pleasant and in no acute distress. HEENT: No scleral icterus. Extraocular movements grossly intact. Moist buccal mucosa. NECK: Supple without lymphadenopathy. CHEST: Unlabored respirations. Equal bilateral excursions. CARDIOVASCULAR: Regular rate and rhythm. Distal 2+ pulses. ABDOMEN: Soft, nondistended. No peritoneal signs. MUSCULOSKELETAL: No clubbing, cyanosis, or edema. SKIN: Well-perfused. Good skin turgor. MANOMETRY: Shows no evidence of achalasia or scleroderma. ASSESSMENT: 1. Diaphragmatic paraesophageal hiatal hernia with severe gastroesophageal reflux disease. PLAN: 1. Recommend proceeding with a robotic paraesophageal hiatal hernia with possible mesh. 2. Benefits and risks of surgical intervention was discussed including possibility of open technique. 3. Inpatient hospitalization recommended of 2 nights 4. DVT prophylaxis. 5. Antibiotic prophylaxis. Past Medical History Past Medical History: Blood Disorder, GERD/Reflux, Hyperlipidemia, Hypertension , Pulmonary Embolus (PE), Sleep Apnea/CPAP/BIPAP Additional Past Medical History / Comment(s): gout, occasional heart palipitations. factor V-liden, swelling on legs on occasion, cpap, arthritis, hiatal hernia, dizzy when bending over History of Any Multi-Drug Resistant Organisms: None Reported Past Surgical History: Cholecystectomy, Heart Catheterization Additional Past Surgical History / Comment(s): rt cataract surgery, Past Anesthesia/Blood Transfusion Reactions: Motion Sickness Smoking Status: Never smoker - Past Family History Brother(s) Family Medical History: Cancer Additional Family Medical History / Comment(s): 3 brothers with cancer-2 passed from cancer. 1 brother with factor V Medications and Allergies Home Medications Medication Instructions Recorded Confirmed Type Allopurinol [Zyloprim] 100 mg PO DAILY PRN 10/18/17 10/18/17 History Carvedilol [Coreg] 25 mg PO BID 10/18/17 10/18/17 History Cholecalciferol (Vitamin D3) 2,000 unit PO DAILY 10/18/17 10/18/17 History [Vitamin D3] Fenofibrate Nanocrystallized 145 mg PO DAILY 10/18/17 10/18/17 History [Fenofibrate] Ferrous Sulfate [Feosol] 325 mg PO BID 10/18/17 10/18/17 History Folic Acid 0.8 mg PO DAILY 10/18/17 10/18/17 History Furosemide [Lasix] 40 mg PO DAILY 10/18/17 10/18/17 History Rivaroxaban [Xarelto] 20 mg PO DAILY 10/18/17 10/18/17 History Spironolactone [Aldactone] 50 mg PO DAILY 10/18/17 10/18/17 History Valsartan [Diovan] 160 mg PO DAILY 10/18/17 10/18/17 History Vitamin B Complex 1 each PO DAILY 10/18/17 10/18/17 History Allergies Allergy/AdvReac Type Severity Reaction Status Date / Time No Known Allergies Allergy Verified 10/18/17 13:36
[2017-10-26 12:28] VITALS: BP 115/67; PULSE 67; RESP 16; TEMP 97.6
[2017-10-26 12:45] LABS: Basophils % (A) 1 %; Eosinophils # (A) 0.2 k/uL (0-0.7); Eosinophils % (A) 3 %; HGB 14.9 gm/dL (13.0-17.5); Lymphocytes # (A) 1.3 k/uL (1.0-4.8); Lymphocytes % (A) 17 %; MCH 30.2 pg (25.0-35.0); MCHC 33.8 g/dL (31.0-37.0); MCV 89.2 fL (80.0-100.0); Mean Platelet Volume 8.1; Monocytes # (A) 0.5 k/uL (0-1.0); Monocytes % (A) 7 %; Neutrophils # (A) 5.4 k/uL (1.3-7.7); Neutrophils % (A) 71 %; Platelet Count 244 k/uL (150-450); RBC 4.93 m/uL (4.30-5.90); RDW 13.5 % (11.5-15.5); WBC 7.6 k/uL (3.8-10.6)
[2017-10-26 13:09] LABS: Albumin 4.3 g/dL (3.5-5.0); Calcium 9.8 mg/dL (8.4-10.2); Potassium 5.1 mmol/L (3.5-5.1); Total Bilirubin 0.8 mg/dL (0.2-1.3); Total Protein 6.9 g/dL (6.3-8.2)
--- NOTE | 2017-10-26 14:08 | P.HPADDEND ---
H&P Addendum H&P Addendum Date: 10/26/17 Patient had prior cardiac clearance. He comes in today with new onset dyspnea with exertion in the last 3-4 days. Previous blood work demonstrated elevated potassium of 5.1. Blood work was repeated now demonstrating new onset acute renal failure. Patient is unaware of baseline kidney disease. As a result of new acute onset renal failure and dyspnea on exertion with congestive heart failure, this case has been canceled. I personally spoke to Hospitalist group monument setter helper regarding the patient's clinical presentation. He will be admitted for further workup including nephrology, pulmonary, and cardiac.
== END ==
LOC: 2ORMAIN 11:05 → OR 11:05 → UNDOADMIN 11:05 → EDSTATUS 14:00
PROVIDERS: ATTEND Surgery Plastic and Reconstructive Surgery
DX: N17.9 Acute kidney failure, unspecified (principal); R06.00 Dyspnea, unspecified; I11.0 Hypertensive heart disease with heart failure; I50.9 Heart failure, unspecified; K44.9 Diaphragmatic hernia without obstruction or gangrene; Z53.8 Procedure and treatment not carried out for other reasons; K21.9 Gastro-esophageal reflux disease without esophagitis; E78.5 Hyperlipidemia, unspecified; G47.33 Obstructive sleep apnea (adult) (pediatric); M10.9 Gout, unspecified; D68.51 Activated protein C resistance; M19.90 Unspecified osteoarthritis, unspecified site; Z99.89 Dependence on other enabling machines and devices; Z79.01 Long term (current) use of anticoagulants; Z79.899 Other long term (current) drug therapy; Z90.49 Acquired absence of other specified parts of digestive tract; Z86.711 Personal history of pulmonary embolism
CPT/HCPCS: 86900; 86901; 80053; 85025; 86850; 43282; J1644; J1100; J2405; J0131

== ENCOUNTER 2017-11-15 10:24 | Inpatient (IN) | payer MEDICARE ==
--- NOTE | 2017-11-15 11:07 | ED ---
Abdominal Pain HPI - General Chief Complaint: Abdominal Pain Stated Complaint: Abd Pain Time Seen by Provider: 11/15/17 10:34 Source: EMS, RN notes reviewed Mode of arrival: EMS Limitations: no limitations - History of Present Illness Initial Comments: This a 77-year-old male presents emergency department via EMS from [facility] as a transfer for pancreatitis. Patient developed some abdominal pain yesterday progressed and today and said some nausea and vomiting. Patient states he has no history of pancreatitis. He states he does not drink any alcohol. Patient states that he has not recently seen a GI physician. Patient states she was given morphine which initially helped the pain is returning. Patient agreed no fever no chills that he feels bloated distended but having some bowel movements. - Related Data Home Medications Medication Instructions Recorded Confirmed Allopurinol [Zyloprim] 100 mg PO Q48H 10/18/17 11/15/17 Cholecalciferol (Vitamin D3) 2,000 unit PO DAILY 10/18/17 11/15/17 [Vitamin D3] Fenofibrate Nanocrystallized 145 mg PO DAILY 10/18/17 11/15/17 [Fenofibrate] Ferrous Sulfate [Iron (65 MG 325 mg PO BID 10/18/17 11/15/17 Elemental)] Folic Acid 0.8 mg PO DAILY 10/18/17 11/15/17 Rivaroxaban [Xarelto] 20 mg PO DAILY 10/18/17 11/15/17 Vitamin B Complex 1 cap PO DAILY 10/18/17 11/15/17 Furosemide [Lasix] 20 mg PO DAILY 11/15/17 11/15/17 Losartan [Cozaar] 50 mg PO DAILY 11/15/17 11/15/17 Previous Rx's Medication Instructions Recorded Acetaminophen Tab [Tylenol] 650 mg PO Q6HR PRN tab 10/29/17 Allergies Allergy/AdvReac Type Severity Reaction Status Date / Time No Known Allergies Allergy Verified 10/26/17 22:43 Review of Systems ROS Statement: Those systems with pertinent positive or pertinent negative responses have been documented in the HPI. ROS Other: All systems not noted in ROS Statement are negative. Past Medical History Past Medical History: Blood Disorder, GERD/Reflux, Hyperlipidemia, Hypertension , Pulmonary Embolus (PE), Renal Disease, Sleep Apnea/CPAP/BIPAP Additional Past Medical History / Comment(s): Factor V Leyden, previous history of DVT and pulmonary embolism, obstructive sleep apnea with an AHI of 43 currently on scene at a pressure of 11, hypertension, hyperlipidemia, acid reflux, hiatal hernia,, gout History of Any Multi-Drug Resistant Organisms: None Reported Past Surgical History: Cholecystectomy, Heart Catheterization Additional Past Surgical History / Comment(s): rt cataract surgery, Past Anesthesia/Blood Transfusion Reactions: Motion Sickness Additional Past Anesthesia/Blood Transfusion Reaction / Comment(s): clausterphobia Past Psychological History: Depression Smoking Status: Never smoker Past Alcohol Use History: Occasional Past Drug Use History: None Reported - Past Family History Brother(s) Family Medical History: Cancer Additional Family Medical History / Comment(s): 3 brothers with cancer-2 passed from cancer. 1 brother with factor V Father Family Medical History: No Reported History Additional Family Medical History / Comment(s): at age 90 from old age Mother Family Medical History: Hypertension, Myocardial Infarction ([place]) Additional Family Medical History / Comment(s): gout. mom at ge 75 General Exam Limitations: no limitations General appearance: alert, in no apparent distress Head exam: Present: atraumatic, normocephalic, normal inspection Neck exam: Present: normal inspection, full ROM. Absent: tenderness, meningismus, lymphadenopathy Respiratory exam: Present: normal lung sounds bilaterally. Absent: respiratory distress, wheezes, rales, rhonchi, stridor Cardiovascular Exam: Present: regular rate, normal rhythm, normal heart sounds. Absent: systolic murmur, diastolic murmur, rubs, gallop, clicks GI/Abdominal exam: Present: soft, tenderness, normal bowel sounds. Absent: distended, guarding, rebound, rigid Course Vital Signs 11/15/17 10:31 Temperature 98.2 F Pulse Rate 82 Respiratory 18 Rate Blood Pressure 160/74 O2 Sat by Pulse 98 Oximetry Medical Decision Making - Medical Decision Making 77-year-old male presents for a transfer from [place] for pain and otitis. Patiently admitted IV fluids, pain control and GI consult. Disposition Clinical Impression: Pancreatitis, Nausea and vomiting Disposition: ADMITTED IP TO THIS HOSP Condition: Stable Referrals: Irish Arango MD [Primary Care Provider] - 1-2 days
[2017-11-15] MEDS ORDERED: ONDANSETRON 4 MG/2 ML VIAL IVP STA (11:08)
[2017-11-15] MEDS ORDERED: MORPHINE SULFATE 4 MG/ML SYRINGE IVP STA (11:08)
[2017-11-15] MEDS: SODIUM CHLORIDE 0.9% 1,000 ML IV SCH ×3 (11:15→21:36)
[2017-11-15] MEDS ORDERED: IOPAMIDOL-300 CONTRAST 30 ML VIAL (ORAL USE) PO PRN (11:21)
[2017-11-15] MEDS ORDERED: NALOXONE 0.4 MG/ML 1 ML VIAL IV PRN (11:24)
[2017-11-15] MEDS ORDERED: ONDANSETRON 4 MG/2 ML VIAL IVP PRN ×2 (11:24→14:35)
--- NOTE | 2017-11-15 12:25 | CT ---
EXAMINATION TYPE: CT abdomen pelvis w con DATE OF EXAM: 11/15/2017 COMPARISON: None HISTORY: Abdominal pain CT DLP: 2225 mGycm Automated exposure control for dose reduction was used. CONTRAST: CT scan of the abdomen pelvis is performed with IV Contrast, patient injected with 80 mL of Isovue 30 0. FINDINGS- LUNG BASES-linear subsegmental changes most typical scar or atelectasis. Calcified 1 cm nodule medial aspect right lower lobe compatible with granuloma. Suspect calcified hilar lymph nodes on the right. Heart is enlarged. LIVER/GB-previous cholecystectomy changes noted. Mild intrahepatic biliary dilation.. PANCREAS-there is abnormal attenuation adjacent to the head of the pancreas. No definite pancreatic m ass seen.. SPLEEN- No gross abnormality is seen. ADRENALS- No gross abnormality is seen. KIDNEYS/BLADDER- no hydronephrosis or nephrolithiasis. Subcentimeter left renal mass noted. Additiona lly there is reduced attenuation involving the posterior lower pole left kidney. This measures 2.1 cm and 11 Hounsfield units. BOWEL-there is inflammatory change adjacent to the duodenum which demonstrates mild wall thickening. There is fluid and abnormal soft tissue attenuation inferior to the second portion of the duodenum. S ome of the soft tissue attenuation has a more masslike configuration on axial images appears to be mo re likely fluid based on coronal and sagittal imaging. Small hiatal hernia noted. LYMPH NODES- No greater than 1cm abdominal or pelvic lymph nodes areappreciated. OSSEOUS STRUCTURES-hypertrophic and degenerative change of the spine noted.. OTHER- aorta of normal caliber. No free air or free fluid. IMPRESSION- 1. There appears to be inflammation surrounding the proximal duodenum and pancreatic head. Correlate for pancreatitis versus peptic ulcer disease or duodenitis. Abnormal fluid and/or soft tissue density inferior to the second portion the duodenum. This could be postinflammatory. Recommend follow resolu tion to exclude a mesenteric mass including carcinoid. 2. There is low-attenuation involving the posterior lower pole left kidney which is less than 15 Houn sfield units suggestive of a cyst. Previous renal infarction or infection also in the differential gi allison the segmental morphology.
[2017-11-15] MEDS ORDERED: ALLOPURINOL 100 MG TAB PO PRN (13:33)
[2017-11-15] MEDS: LOSARTAN 50 MG TAB PO SCH (14:17)
[2017-11-15] MEDS: FUROSEMIDE 20 MG TAB PO SCH (14:18)
[2017-11-15] MEDS: MORPHINE SULFATE 4 MG/ML SYRINGE IV PRN ×2 (14:32→18:34)
--- NOTE | 2017-11-15 15:14 | P.GSCN ---
History of Present Illness Consult date: 11/15/17 Reason for Consult: Pancreatitis abdominal pain History of present illness: 77 male transferred from [facility] to [facility] to be evaluated for generalized abdominal pain generalized tenderness increased abdominal bloating. Patient presented to [facility] emergency room with the above-mentioned symptoms. Patient was noted to have elevated lipase consistent with acute pancreatitis Patient had an open cholecystectomy done 10-15 years prior. Patient denies any use of alcohol. Denies any prior episodes of pancreatitis. No new medication per patient report. 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 Has a history of prior pulmonary emboli and DVT Lipase on admission elevated 9000 [facility] x-ray of the abdomen report reviewed no free air noted organs were unremarkable nonspecific abdominal series was no pathology bowel distention patient states has noted over the last several days abdomen to be more distended with a nausea sensation decreased appetite additionally patient reports feeling constipated CAT scan done on November 15 report reviewed in summary showed inflammation surrounding the proximal duodenum and pancreatic head correlate for pancreatitis versus peptic ulcer disease or duodenitis. Review of Systems Essentially unremarkable except as mentioned in the present illness Past Medical History Past Medical History: Blood Disorder, GERD/Reflux, Hyperlipidemia, Hypertension , Pulmonary Embolus (PE), Renal Disease, Sleep Apnea/CPAP/BIPAP Additional Past Medical History / Comment(s): Factor V Leyden, previous history of DVT and pulmonary embolism, obstructive sleep apnea with an AHI of 43 currently on scene at a pressure of 11, hypertension, hyperlipidemia, acid reflux, hiatal hernia,, gout History of Any Multi-Drug Resistant Organisms: None Reported Past Surgical History: Cholecystectomy, Heart Catheterization Additional Past Surgical History / Comment(s): rt cataract surgery, Past Anesthesia/Blood Transfusion Reactions: Motion Sickness Additional Past Anesthesia/Blood Transfusion Reaction / Comm: clausterphobia Past Psychological History: Depression Additional Psychological History / Comment(s): pt lives alone in a 2 story home has 1 porch step. has cpap machine at home no home care services. Smoking Status: Never smoker Past Alcohol Use History: Occasional Additional Past Alcohol Use History / Comment(s): past rare alcohol-none now. Past Drug Use History: None Reported - Past Family History Brother(s) Family Medical History: Cancer Additional Family Medical History / Comment(s): 3 brothers with cancer-2 passed from cancer. 1 brother with factor V Father Family Medical History: No Reported History Additional Family Medical History / Comment(s): at age 90 from old age Mother Family Medical History: Hypertension, Myocardial Infarction ([place]) Additional Family Medical History / Comment(s): gout. mom at ge 75 Medications and Allergies Home Medications Medication Instructions Recorded Confirmed Type Allopurinol [Zyloprim] 100 mg PO Q48H 10/18/17 11/15/17 History Cholecalciferol (Vitamin D3) 2,000 unit PO DAILY 10/18/17 11/15/17 History [Vitamin D3] Fenofibrate Nanocrystallized 145 mg PO DAILY 10/18/17 11/15/17 History [Fenofibrate] Ferrous Sulfate [Iron (65 MG 325 mg PO BID 10/18/17 11/15/17 History Elemental)] Folic Acid 0.8 mg PO DAILY 10/18/17 11/15/17 History Rivaroxaban [Xarelto] 20 mg PO DAILY 10/18/17 11/15/17 History Vitamin B Complex 1 cap PO DAILY 10/18/17 11/15/17 History Acetaminophen Tab [Tylenol] 650 mg PO Q6HR PRN tab 10/29/17 11/15/17 Rx Furosemide [Lasix] 20 mg PO DAILY 11/15/17 11/15/17 History Losartan [Cozaar] 50 mg PO DAILY 11/15/17 11/15/17 History Allergies Allergy/AdvReac Type Severity Reaction Status Date / Time No Known Allergies Allergy Verified 10/26/17 22:43 Surgical - Exam Vital Signs Temp Pulse Resp BP Pulse Ox 98.2 F 82 18 160/74 98 11/15/17 10:31 11/15/17 10:31 11/15/17 10:31 11/15/17 10:31 11/15/17 10:31 GENERAL APPEARANCE: 77-year-old male patient is alert orient x 3 reports having abdominal discomfort with a nausea sensation VITAL SIGNS: Reviewed HEENT: Head is normocephalic and atraumatic. Pupils are equal and reactive. The nares are patent. Oropharynx is clear without lesions. NECK: Supple without lymphadenopathy. Traches midline. HEART: S1, S2. Regular rate and rhythm. No murmur noted denying chest pain LUNGS: No crackles or wheezes are heard. Adequate air movement bilaterally ABDOMEN: Soft, mildly distended and bloated few hypoactive bowel tones diffuse tenderness No peritoneal signs. No palpable organomegaly or masses. States a nausea sensation small bowel movement EXTREMITIES: Normal skin color and turgor. No cyanosis, rash, ulceration, clubbing or edema. Radial pedal pulses are 2/4 bilaterally. NEUROLOGICAL: No focal deficits. Strength and sensation are grossly intact. Assessment and Plan Assessment: Impression Present on admission diffuse abdominal pain nausea vomiting bloated with elevated lipase suspect due to acute pancreatitis 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 History of a prior pulmonary emboli DVT per patient report CAT scan abdomen and pelvis pancreas abnormal attenuation adjacent to the head of the pancreas no definitive pancreatic mass New-onset constipation History of obstructive sleep apnea with CPAP therapy History of a prior 10-20 years open cholecystectomy Plan IV fluid as ordered Pain control DVT and GI prophylaxis Repeat labs in the morning Hepatitis panel Lipid panel Further recommendations pending Await further input by GI service Surgical consultation note dictated for Dr. kelly The above impression and plan of care have been discussed and directed by signing physician. Tasneem Batista nurse practitioner acting as scribe for signing physician.
[2017-11-15] MEDS: RIVAROXABAN 20 MG TAB PO SCH (16:58)
[2017-11-15 17:41] LABS: Basophils % (A) 0 %; Eosinophils % (A) 0 %; HCT 41.8 % (39.0-53.0); HGB 13.3 gm/dL (13.0-17.5); Lymphocytes # (A) 0.6 k/uL (1.0-4.8); Lymphocytes % (A) 7 %; MCH 29.7 pg (25.0-35.0); MCHC 31.8 g/dL (31.0-37.0); MCV 93.4 fL (80.0-100.0); Mean Platelet Volume 7.4; Monocytes # (A) 0.5 k/uL (0-1.0); Monocytes % (A) 6 %; Neutrophils # (A) 7.3 k/uL (1.3-7.7); Neutrophils % (A) 86 %; Platelet Count 210 k/uL (150-450); RBC 4.48 m/uL (4.30-5.90); RDW 13.6 % (11.5-15.5); WBC 8.6 k/uL (3.8-10.6)
--- NOTE | 2017-11-15 17:58 | HP ---
HISTORY AND PHYSICAL CHIEF COMPLAINT: 77-year-old presented from [place] due to generalized abdominal pain, increasing bloating. His lipase is over 2000 at which time he was admitted to the hospital. He had a cholecystectomy 15 years ago. He has had no new medications. 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 Prior history of possible pulmonary embolism, DVT. X- ray of the abdomen showed nonspecific findings. CT scan of the abdomen here shows duodenitis, pancreatitis. REVIEW OF SYSTEMS: Fourteen point review of systems negative except for mentioned in HPI. PAST MEDICAL HISTORY: Renal disease, sleep apnea, pulmonary embolism, hypertension, dyslipidemia, GERD, blood disorder. He has had pressure of 11 on CPAP machine, AHI of 43. PAST SURGICAL HISTORY: Surgeries include: Cholecystectomy, heart catheterization, cataract surgery, history of depression, claustrophobia, has CPAP machine at home. SOCIAL HISTORY: Never smoker. Occasional alcohol. PAST FAMILY MEDICAL HISTORY: Brother with cancer. Three brothers with cancer, two passed from cancer. One brother factor 5. Father age 90. Mother at 75. HOME MEDICATIONS: Zyloprim, vitamin D, fenofibrate, iron, folic acid, Xarelto, Tylenol, Lasix, Cozaar. ALLERGIES: No known drug allergies. PHYSICAL EXAMINATION: Temp 98.2, blood pressure 160/74, O2 98% on room air, pulse 70s to 80s. Obese appearing, well male in no acute distress. HEENT normocephalic, atraumatic. Heart S1, S2. Lungs are no crackles or wheezes. Abdomen is soft, mildly distended. Extremities no cyanosis, clubbing, edema. Neurologic: Alert. Cranial nerves are intact. ASSESSMENT AND PLAN: 1. Acute pancreatitis. 2. 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 3. History of primary pulmonary emboli, deep vein thrombosis. 4. Possible cyst on his kidney. 5. Nausea, constipation. 6. Sleep apnea. 7. Pain control with IV fluids. 8. Check further blood work. 9. Please see further orders from surgery. MMODL / IJN: [id number] /
[2017-11-15 18:02] LABS: Albumin 3.4 g/dL (3.5-5.0); Calcium 8.5 mg/dL (8.4-10.2); Potassium 4.2 mmol/L (3.5-5.1); Total Bilirubin 0.7 mg/dL (0.2-1.3); Total Protein 5.7 g/dL (6.3-8.2)
[2017-11-15] MEDS: FENOFIBRATE 160 MG TAB PO SCH (20:45)
[2017-11-15] MEDS: FERROUS SULFATE 325 MG TAB PO SCH (20:45)
[2017-11-15 20:57] LABS: Hepatitis A Antibody IgM Non-Reactive (Non-Reactive); Hepatitis B Core IgM Non-Reactive (Non-Reactive)
[2017-11-16 08:16] LABS: Basophils % (A) 0 %; Eosinophils % (A) 0 %; HCT 39.9 % (39.0-53.0); HGB 12.9 gm/dL (13.0-17.5); Lymphocytes # (A) 0.5 k/uL (1.0-4.8); Lymphocytes % (A) 4 %; MCH 30.5 pg (25.0-35.0); MCHC 32.4 g/dL (31.0-37.0); Monocytes # (A) 0.8 k/uL (0-1.0); Monocytes % (A) 6 %; Neutrophils # (A) 10.5 k/uL (1.3-7.7); Neutrophils % (A) 88 %; Platelet Count 201 k/uL (150-450); RBC 4.24 m/uL (4.30-5.90); RDW 13.5 % (11.5-15.5); WBC 11.9 k/uL (3.8-10.6)
[2017-11-16] MEDS: FUROSEMIDE 20 MG TAB PO SCH (08:17)
[2017-11-16] MEDS: FERROUS SULFATE 325 MG TAB PO SCH ×2 (08:17→21:53)
[2017-11-16] MEDS: SODIUM CHLORIDE 0.9% 1,000 ML IV SCH ×2 (08:17→17:29)
[2017-11-16] MEDS: FOLIC ACID 1 MG TAB PO SCH (08:17)
[2017-11-16] MEDS: LOSARTAN 50 MG TAB PO SCH (08:17)
[2017-11-16] MEDS: PANTOPRAZOLE 40 MG/10 ML VIAL IV SCH (08:18)
[2017-11-16 08:19] LABS: INR 1.2 (<1.2); Prothrombin Time 11.8 sec (9.0-12.0)
[2017-11-16 08:43] LABS: Potassium 4.3 mmol/L (3.5-5.1); Total Bilirubin 0.9 mg/dL (0.2-1.3); Total Protein 5.3 g/dL (6.3-8.2)
[2017-11-16] MEDS ORDERED: NON-FORMULARY DRUG (Vitamin B Complex [Vitamin B Complex] 1 CAP) PO SCH (09:00)
--- NOTE | 2017-11-16 10:30 | P.CONS ---
History of Present Illness - Reason for Consult Consult date: 11/16/17 Pancreatitis Requesting physician: Brody New - History of Present Illness 77-year-old gentleman past medical history multiple medical problems hypertension, hyperlipidemia, renal disease, DVT/pulmonary embolism, factor V Leiden maintained on Xarelto, MADALYN, cholecystectomy more than 10 years ago unsure if he had cholelithiasis, transferred from [facility] with acute onset of midepigastric upper abdominal pain on Sunday with nausea and no emesis. Denies hematemesis hematochezia melena fever chills or weight loss. Pancreatic enzymes elevated lipase greater than 18,000. LFTs within normal limits. No history of pancreatitis. No history of peptic ulcer disease or alcoholism. A few weeks ago he had changes in his home medications was placed on a new drug for blood pressure not sure what was called. CT abdomen and pelvis mild intrahepatic biliary dilatation. Abnormal attenuation adjacent to the head of the pancreas. No definite pancreatic mass. Inflammatory change adjacent to the duodenum with mild wall thickening. There is fluid and abnormal soft tissue attenuation inferior to the second portion duodenum. Some of the soft tissue attenuation is a more masslike configuration appears to be more likely fluid. Small hiatal hernia. Possible peptic ulcer disease possible duodenitis. Mesenteric mass including carcinoid cannot be excluded. Admission white count 8.6 presently 11.9. Hemoglobin 13.3 MCV 93 platelet 210, hemoglobin presently 12.9. Lipase 18,746 presently 5825. Amylase 714. LFTs within normal limits. Hepatitis screen nonreactive. Review of Systems Constitutional: Denies fever, chills, sweats, weight gain, or loss. HEENT: Negative for migraines, blurred vision or loss, earaches, drainage, tinnitus, oral mucosal lesions, dysphagia, or odynophagia. Cardiac: Negative for chest pain, arrhythmias, or palpitation. Respiratory: Negative for shortness of breath, hemoptysis, cough, or sputum production. Gastrointestinal: See HPI for pertinent findings. Genitourinary: Negative for hematuria, urgency, frequency, polyuria, dysuria, or penile discharge. Musculoskeletal: Negative for muscle aches, swelling, arthritis, and arthralgias. Neurologic: Negative for stroke or TIA. Endocrine: Negative for thyroid problems. Skin: Negative for rash or itching. Psychiatric: Negative history for depression and anxiety Past Medical History Past Medical History: Blood Disorder, GERD/Reflux, Hyperlipidemia, Hypertension , Pulmonary Embolus (PE), Renal Disease, Sleep Apnea/CPAP/BIPAP Additional Past Medical History / Comment(s): Factor V Leyden, previous history of DVT and pulmonary embolism, obstructive sleep apnea with an AHI of 43 currently on scene at a pressure of 11, hypertension, hyperlipidemia, acid reflux, hiatal hernia,, gout History of Any Multi-Drug Resistant Organisms: None Reported Past Surgical History: Cholecystectomy, Heart Catheterization Additional Past Surgical History / Comment(s): rt cataract surgery, Past Anesthesia/Blood Transfusion Reactions: Motion Sickness Additional Past Anesthesia/Blood Transfusion Reaction / Comm: clausterphobia Past Psychological History: Depression Additional Psychological History / Comment(s): pt lives alone in a 2 story home has 1 porch step. has cpap machine at home no home care services. Smoking Status: Never smoker Past Alcohol Use History: Occasional Additional Past Alcohol Use History / Comment(s): past rare alcohol-none now. Past Drug Use History: None Reported - Past Family History Brother(s) Family Medical History: Cancer Additional Family Medical History / Comment(s): 3 brothers with cancer-2 passed from cancer. 1 brother with factor V Father Family Medical History: No Reported History Additional Family Medical History / Comment(s): at age 90 from old age Mother Family Medical History: Hypertension, Myocardial Infarction ([place]) Additional Family Medical History / Comment(s): gout. mom at ge 75 Medications and Allergies Home Medications Medication Instructions Recorded Confirmed Type Allopurinol [Zyloprim] 100 mg PO Q48H 10/18/17 11/15/17 History Cholecalciferol (Vitamin D3) 2,000 unit PO DAILY 10/18/17 11/15/17 History [Vitamin D3] Fenofibrate Nanocrystallized 145 mg PO DAILY 10/18/17 11/15/17 History [Fenofibrate] Ferrous Sulfate [Iron (65 MG 325 mg PO BID 10/18/17 11/15/17 History Elemental)] Folic Acid 0.8 mg PO DAILY 10/18/17 11/15/17 History Rivaroxaban [Xarelto] 20 mg PO DAILY 10/18/17 11/15/17 History Vitamin B Complex 1 cap PO DAILY 10/18/17 11/15/17 History Acetaminophen Tab [Tylenol] 650 mg PO Q6HR PRN tab 10/29/17 11/15/17 Rx Furosemide [Lasix] 20 mg PO DAILY 11/15/17 11/15/17 History Losartan [Cozaar] 50 mg PO DAILY 11/15/17 11/15/17 History Allergies Allergy/AdvReac Type Severity Reaction Status Date / Time No Known Allergies Allergy Verified 10/26/17 22:43 Physical Exam Vitals: Vital Signs Temp Pulse Pulse Resp BP BP Pulse Ox 11/16/17 06:42 97.6 F 92 16 118/58 94 L 11/15/17 23:00 96.8 F L 94 20 120/69 94 L 11/15/17 16:00 91 11/15/17 15:00 97.1 F L 91 17 140/78 94 L 11/15/17 12:57 96.3 F L 86 18 150/74 96 11/15/17 12:07 97.6 F 87 17 152/70 95 11/15/17 10:31 98.2 F 82 18 160/74 98 Intake and Output 11/15/17 11/16/17 11/16/17 22:59 06:59 14:59 Output Total 600 550 Balance -600 -550 Output: Urine 600 550 Other: Voiding Method Urinal # Voids 0 # Bowel Movements 0 Weight 104.326 kg General appearance: The patient is alert, oriented, in no acute distress. HET: Head is normocephalic and atraumatic. Pupils are equal and reactive. Oropharynx is clear without lesions. Neck: Supple without lymphadenopathy. Trachea midline. Heart: S1 S2. Regular rate and rhythm. Lungs: No crackles or wheezes are heard. Abdomen: Soft, mild tenderness midepigastrium, nondistended with bowel sounds. No peritoneal signs. No palpable organomegaly or masses. Extremities: Normal skin color and turgor. No cyanosis, rash, ulceration, clubbing, or edema. Radial and pedal pulses are 2/4 bilaterally. Neurological: No focal deficits. Strength and sensation are grossly intact. Results CBC & Chem 7: 11/16/17 07:43 11/16/17 07:43 Labs: Abnormal Lab Results - Last 24 Hours (Table) 11/15/17 11/15/17 11/16/17 Range/Units 15:06 17:40 07:43 WBC (3.8-10.6) k/uL RBC (4.30-5.90) m/uL Hgb (13.0-17.5) gm/dL Neutrophils # (1.3-7.7) k/uL Lymphocytes # 0.6 L (1.0-4.8) k/uL INR (<1.2) Chloride 109 H 109 H (98-107) mmol/L BUN 24 H (9-20) mg/dL Glucose 124 H 132 H (74-99) mg/dL Calcium 8.0 L (8.4-10.2) mg/dL Total Protein 5.7 L 5.3 L (6.3-8.2) g/dL Albumin 3.4 L 3.0 L (3.5-5.0) g/dL HDL Cholesterol 35 L 34 L (40-60) mg/dL Amylase 714 H* (30-110) U/L Lipase 26761 H 5825 H (23-300) U/L 11/16/17 11/16/17 Range/Units 07:43 07:43 WBC 11.9 H (3.8-10.6) k/uL RBC 4.24 L (4.30-5.90) m/uL Hgb 12.9 L (13.0-17.5) gm/dL Neutrophils # 10.5 H (1.3-7.7) k/uL Lymphocytes # 0.5 L (1.0-4.8) k/uL INR 1.2 H (<1.2) Chloride (98-107) mmol/L BUN (9-20) mg/dL Glucose (74-99) mg/dL Calcium (8.4-10.2) mg/dL Total Protein (6.3-8.2) g/dL Albumin (3.5-5.0) g/dL HDL Cholesterol (40-60) mg/dL Amylase (30-110) U/L Lipase (23-300) U/L CT scan - abdomen: report reviewed (Dr. Ortiz) Assessment and Plan (1) Pancreatitis Narrative/Plan: Acute pancreatitis first episode CT reported pancreatic inflammatory changes duodenal thickening possible duodenitis possible peptic ulcer disease carcinoid mesenteric mass could not be excluded. Current Visit: Yes Status: Acute Code(s): K85.90 - ACUTE PANCREATITIS WITHOUT NECROSIS OR INFECTION, UNSP SNOMED Code(s): 50651934 (2) Factor V Leiden Current Visit: Yes Status: Acute Code(s): D68.51 - ACTIVATED PROTEIN C RESISTANCE SNOMED Code(s): 137991060 (3) History of DVT (deep vein thrombosis) Current Visit: Yes Status: Acute Code(s): Z86.718 - PERSONAL HISTORY OF OTHER VENOUS THROMBOSIS AND EMBOLISM SNOMED Code(s): 870998347 (4) History of pulmonary embolism Current Visit: No Status: Resolved Code(s): Z86.711 - PERSONAL HISTORY OF PULMONARY EMBOLISM SNOMED Code(s): 514989111 Plan: 1. Pancreatic enzymes improving will allow clear liquid diet. Continue with anticoagulation. We'll obtain VICKI, subclass 1-for IgG, Ca 19-9. General surgery following. Will follow closely with you. Protonix 40 mg daily. Thank you for this kind referral and the opportunity to participate in the care of your patient. This consultation was discussed with Dr. Ortiz. The impression and plan of care have been directed as dictated.
[2017-11-16] MEDS: CHOLECALCIFEROL 1,000 UNIT TAB PO SCH (13:35)
--- NOTE | 2017-11-16 14:29 | P.PN ---
Subjective Progress Note Date: 11/16/17 Principal diagnosis: Pancreatitis Patient says he feels better today. Pain is improving. Liver enzymes normal. Amylase and lipase are decreasing. Objective - Vital Signs Vital signs: Vital Signs Temp 97.6 F 11/16/17 06:42 Pulse 92 11/16/17 06:42 Resp 16 11/16/17 06:42 BP 118/58 11/16/17 06:42 Pulse Ox 94 L 11/16/17 06:42 Intake & Output 11/15/17 11/16/17 11/16/17 18:59 06:59 18:59 Output Total 400 750 325 Balance -400 -750 -325 Weight 104.326 kg Output: Urine 400 750 325 Other: Voiding Method Urinal Urinal # Voids 0 2 # Bowel Movements 0 - Exam Abdomen: Soft, nondistended, mild epigastric tenderness - Labs CBC & Chem 7: 11/16/17 07:43 11/16/17 07:43 Labs: Abnormal Lab Results - Last 24 Hours (Table) 11/15/17 11/15/17 11/16/17 Range/Units 15:06 17:40 07:43 WBC (3.8-10.6) k/uL RBC (4.30-5.90) m/uL Hgb (13.0-17.5) gm/dL Neutrophils # (1.3-7.7) k/uL Lymphocytes # 0.6 L (1.0-4.8) k/uL INR (<1.2) Chloride 109 H 109 H (98-107) mmol/L BUN 24 H (9-20) mg/dL Glucose 124 H 132 H (74-99) mg/dL Calcium 8.0 L (8.4-10.2) mg/dL Total Protein 5.7 L 5.3 L (6.3-8.2) g/dL Albumin 3.4 L 3.0 L (3.5-5.0) g/dL HDL Cholesterol 35 L 34 L (40-60) mg/dL Amylase 714 H* (30-110) U/L Lipase 31449 H 5825 H (23-300) U/L 11/16/17 11/16/17 Range/Units 07:43 07:43 WBC 11.9 H (3.8-10.6) k/uL RBC 4.24 L (4.30-5.90) m/uL Hgb 12.9 L (13.0-17.5) gm/dL Neutrophils # 10.5 H (1.3-7.7) k/uL Lymphocytes # 0.5 L (1.0-4.8) k/uL INR 1.2 H (<1.2) Chloride (98-107) mmol/L BUN (9-20) mg/dL Glucose (74-99) mg/dL Calcium (8.4-10.2) mg/dL Total Protein (6.3-8.2) g/dL Albumin (3.5-5.0) g/dL HDL Cholesterol (40-60) mg/dL Amylase (30-110) U/L Lipase (23-300) U/L Assessment and Plan (1) Pancreatitis Narrative/Plan: Patient doing better at this time. We'll slowly advance diet. Oral pain meds. Current Visit: Yes Status: Acute Code(s): K85.90 - ACUTE PANCREATITIS WITHOUT NECROSIS OR INFECTION, UNSP SNOMED Code(s): 32094386
[2017-11-16] MEDS: HYDROcodone/APAP 5-325MG 1 EACH TAB PO PRN ×2 (15:11→21:52)
[2017-11-16] MEDS: FENOFIBRATE 160 MG TAB PO SCH (21:53)
[2017-11-16] MEDS: RIVAROXABAN 20 MG TAB PO SCH (21:54)
--- NOTE | 2017-11-16 23:41 | PN ---
PROGRESS NOTE SUBJECTIVE: This is a 77-year-old white male with acute pancreatitis. His lipase went from 18,000 down to 5000. He is on clear liquid diet. This will be advanced to a soft diet Sunday morning and then possibly discharge home on Sunday or Sunday. CARDIOVASCULAR: S1, S2. Abdomen is soft. HEMATOLOGY: Negative Homans'. PSYCH: Fair mood and affect. ASSESSMENT: 1. Acute pancreatitis. 2. Acute abdominal pain secondary to pancreatitis of unclear nature. Continue to advance diet. Check lipase, amylase, lipase in the morning. Pain control. MMODL / IJN: [id number] /
[2017-11-17] MEDS: MORPHINE SULFATE 4 MG/ML SYRINGE IV PRN (04:28)
[2017-11-17] MEDS: HYDROcodone/APAP 5-325MG 1 EACH TAB PO PRN ×2 (04:33→12:03)
[2017-11-17] MEDS: SODIUM CHLORIDE 0.9% 1,000 ML IV SCH ×3 (05:28→21:21)
[2017-11-17 08:32] LABS: Albumin 2.5 g/dL (3.5-5.0); Calcium 7.6 mg/dL (8.4-10.2); Potassium 4.2 mmol/L (3.5-5.1); Total Bilirubin 0.9 mg/dL (0.2-1.3); Total Protein 4.5 g/dL (6.3-8.2)
[2017-11-17] MEDS: FUROSEMIDE 20 MG TAB PO SCH (08:32)
[2017-11-17] MEDS: LOSARTAN 50 MG TAB PO SCH (08:32)
[2017-11-17] MEDS: FERROUS SULFATE 325 MG TAB PO SCH ×2 (08:32→21:19)
[2017-11-17] MEDS: FOLIC ACID 1 MG TAB PO SCH (08:32)
[2017-11-17] MEDS: PANTOPRAZOLE 40 MG/10 ML VIAL IV SCH (08:32)
--- NOTE | 2017-11-17 10:19 | P.PN ---
Subjective Progress Note Date: 11/17/17 Principal diagnosis: Pancreatitis Patient doing better today. He slept well last night. Liver enzymes and pancreatic enzymes improved. He is hungry. Objective - Vital Signs Vital signs: Vital Signs Temp 97.4 F L 11/17/17 06:18 Pulse 94 11/17/17 06:18 Resp 18 11/17/17 06:18 BP 116/54 11/17/17 06:18 Pulse Ox 94 L 11/17/17 06:18 Intake & Output 11/16/17 11/17/17 11/17/17 18:59 06:59 18:59 Output Total 475 900 Balance -475 -900 Output: Urine 475 900 Other: Voiding Method Urinal # Voids 1 - Exam Abdomen: Soft, nondistended, mild epigastric tenderness - Labs CBC & Chem 7: 11/16/17 07:43 11/17/17 07:42 Labs: Abnormal Lab Results - Last 24 Hours (Table) 11/17/17 Range/Units 07:42 Glucose 134 H (74-99) mg/dL Calcium 7.6 L (8.4-10.2) mg/dL Total Protein 4.5 L (6.3-8.2) g/dL Albumin 2.5 L (3.5-5.0) g/dL Amylase 137 H (30-110) U/L Lipase 780 H (23-300) U/L Assessment and Plan (1) Pancreatitis Narrative/Plan: Will increase diet at this time. Ambulate. Current Visit: Yes Status: Acute Code(s): K85.90 - ACUTE PANCREATITIS WITHOUT NECROSIS OR INFECTION, UNSP SNOMED Code(s): 76960003
[2017-11-17 11:43] LABS: IgG Subclass 3 29.5 mg/dL (11.0-85.0)
[2017-11-17] MEDS: CHOLECALCIFEROL 1,000 UNIT TAB PO SCH (12:03)
--- NOTE | 2017-11-17 12:18 | PN ---
PROGRESS NOTE DATE OF DICTATION: November 17, 2017 Patient is a 77-year-old pleasant white male admitted to the hospital. He was transferred from [facility] with acute pancreatitis. He is doing much better today. The abdominal pain is resolved. He is still taking pain medications, but at much decreased frequency. Overall he feels good. He is on a clear liquid diet tolerating well. PHYSICAL EXAMINATION: He appears comfortable. No apparent distress. VITAL SIGNS: Stable. Blood pressure is 111/57, pulse rate 106, temperature 98.5. HEENT examination unremarkable. Conjunctivae pink. Sclerae anicteric. Oral cavity no lesions. Neck no jugular venous distention or lymph node enlargement. Chest was clear to auscultation. HEART: Regular rate and rhythm. ABDOMEN: Soft, it was obese, slightly distended, but minimally tender. Extremities: No pedal edema. Skin no rashes. NEUROLOGIC: Alert and oriented x3. No focal deficits. LAB DATA: From today: Amylase is down to 137, lipase is down to 780. ALT/AST, T-bilirubin and alkaline phosphatase are within normal limits. CBC from yesterday was within normal limits. IMPRESSION: Acute pancreatitis, this being the first episode of unclear etiology. Serum transaminases are within normal limits which makes it unlikely that we are dealing with a biliary pathology. No history of alcohol use. He was started on some new blood pressure medications a week ago, but it is unlikely we are dealing with medication induced pancreatitis. CT of the abdomen results were reviewed with the patient. RECOMMENDATIONS: 1. Advance diet as tolerated. 2. If his symptoms continue to improve, he can be discharged home in the next 1-2 days. 3. I discussed with him that we will continue further workup on outpatient basis including endoscopic ultrasound of the pancreas to investigate this further. Thank you for this consultation. MMODL / IJN: [id number] /
[2017-11-17] MEDS ORDERED: MORPHINE ORAL SOLN 10 MG/5 ML CUP PO PRN (19:40)
--- NOTE | 2017-11-17 19:41 | PN ---
PROGRESS NOTE SUBJECTIVE: A 77-year-old white male was admitted with pancreatitis. Patient is improving. Lipase is down to 700 from 5000. Diet will be advanced to soft diet to regular diet. CARDIOVASCULAR: S1, S2. LUNGS: Clear. GI: Increased bowel sounds x4. HEMATOLOGY: Negative Homans'. ASSESSMENT: 1. Pancreatitis, improving. 2. Acute on chronic anemia. 3. Hypocalcemia. 4. Protein-calorie malnutrition. Possible discharge home in the morning. His IgG1, 2, 3 and 4 normal. VICKI is negative. All hepatitis blood draws are negative. Follow up in next 24-48 hours. MMODL / IJN: [id number] /
[2017-11-17] MEDS: FENOFIBRATE 160 MG TAB PO SCH (21:19)
[2017-11-17] MEDS: RIVAROXABAN 20 MG TAB PO SCH (22:22)
[2017-11-18] MEDS: HYDROcodone/APAP 5-325MG 1 EACH TAB PO PRN ×5 (00:17→23:16)
[2017-11-18] MEDS: LOSARTAN 50 MG TAB PO SCH (08:30)
[2017-11-18] MEDS: SODIUM CHLORIDE 0.9% 1,000 ML IV SCH ×2 (08:30→20:34)
[2017-11-18] MEDS: FUROSEMIDE 20 MG TAB PO SCH (08:30)
[2017-11-18] MEDS: FERROUS SULFATE 325 MG TAB PO SCH ×2 (08:30→20:39)
[2017-11-18] MEDS: PANTOPRAZOLE 40 MG TABLET PO SCH (08:30)
[2017-11-18] MEDS: FOLIC ACID 1 MG TAB PO SCH (08:30)
[2017-11-18 08:43] LABS: Albumin 2.4 g/dL (3.5-5.0); Calcium 7.9 mg/dL (8.4-10.2); Potassium 3.9 mmol/L (3.5-5.1); Total Bilirubin 0.5 mg/dL (0.2-1.3); Total Protein 4.5 g/dL (6.3-8.2)
[2017-11-18] MEDS ORDERED: ATENOLOL 25 MG TAB PO STA (08:57)
--- NOTE | 2017-11-18 10:00 | P.PN ---
Subjective Progress Note Date: 11/18/17 Principal diagnosis: Pancreatitis Patient doing well today from an abdominal standpoint. Pain is improved. His lipase is normal. Unfortunately was found to be tachycardic in the 130s. That is currently being evaluated. Objective - Vital Signs Vital signs: Vital Signs Temp 97.0 F L 11/18/17 07:00 Pulse 98 11/18/17 08:33 Resp 16 11/18/17 07:00 BP 138/84 11/18/17 07:00 Pulse Ox 96 11/18/17 07:00 Intake & Output 11/17/17 11/18/17 11/18/17 18:59 06:59 18:59 Intake Total 800 1150 Output Total 175 Balance 800 975 Intake: Intake, IV Titration 800 800 Amount Sodium Chloride 0.9% 1, 800 800 000 ml @ 100 mls/hr IV . Q10H [facility] Rx#:[id number] Oral 350 Output: Urine 175 Other: Voiding Method Urinal # Voids 3 1 - Exam Abdomen: Soft, nondistended, minimal epigastric tenderness - Labs CBC & Chem 7: 11/16/17 07:43 11/18/17 07:37 Labs: Abnormal Lab Results - Last 24 Hours (Table) 11/15/17 11/15/17 11/18/17 Range/Units 17:40 17:40 07:37 Glucose 131 H (74-99) mg/dL Calcium 7.9 L (8.4-10.2) mg/dL Total Protein 4.5 L (6.3-8.2) g/dL Albumin 2.4 L (3.5-5.0) g/dL CA 19-9 Antigen 123.6 H (0.0-34.9) U/mL IgG1 396.0 L (405.0-1011.0) mg/dL Assessment and Plan (1) Pancreatitis Narrative/Plan: Continue advancing diet. Await cardiac evaluation. Otherwise stable for discharge. Current Visit: Yes Status: Acute Code(s): K85.90 - ACUTE PANCREATITIS WITHOUT NECROSIS OR INFECTION, UNSP SNOMED Code(s): 23465979
[2017-11-18 10:22] LABS: Amylase <30 U/L (30-110); Anion Gap 6 mmol/L; Blood Urea Nitrogen 15 mg/dL (9-20); Carbon Dioxide 23 mmol/L (22-30); Chloride 107 mmol/L (98-107); Glucose 203 mg/dL (74-99); Potassium 4.4 mmol/L (3.5-5.1); Sodium 136 mmol/L (137-145)
--- NOTE | 2017-11-18 11:56 | CT ---
EXAMINATION TYPE: CT chest angio for PE DATE OF EXAM: 11/18/2017 COMPARISON: None. HISTORY: PE CT DLP: 659 mGycm Automated exposure control for dose reduction was used. CONTRAST: CT Chest for pulmonary embolism performed with with IV Contrast, patient injected with 100 ml mL of I sovue 370. FINDINGS: There is breathing motion artifact on this study. There are atelectatic changes present at both lung bases as well as in the left lingula and right middle lobe. There is no significant axillary or mediastinal adenopathy. There is some mild adenopathy in the righ t hilum. This is likely reactive. There is no evidence of pulmonary embolus. The aorta is normal in caliber without evidence of dissect ion. There is a small left-sided effusion and a smaller right effusion. The heart is not enlarged. Visualized portions of the upper abdomen are unremarkable. There is hypertrophic spondylosis within the spine. IMPRESSION: 1. THIS EXAMINATION IS NEGATIVE FOR PULMONARY EMBOLUS. 2. TINY, BILATERAL EFFUSIONS. 3. MILD DEGENERATIVE CHANGE IN THE SPINE.
[2017-11-18] MEDS ORDERED: CYCLOBENZAPRINE 5 MG TAB PO STA (12:39)
[2017-11-18] MEDS: CHOLECALCIFEROL 1,000 UNIT TAB PO SCH (13:07)
[2017-11-18] MEDS ORDERED: ADENOSINE 3 MG/ML 2 ML VIAL IVP STA ×2 (14:08→15:20)
[2017-11-18] MEDS ORDERED: DILTIAZEM DRIP BOLUS FROM BAG 1 MG SOLN IV ONE (15:35)
[2017-11-18] MEDS: DILTIAZEM 50 MG in SODIUM CHLORIDE 0.9% 40 ML IV SCH ×3 (16:27→23:17)
[2017-11-18] MEDS: FENOFIBRATE 160 MG TAB PO SCH (20:39)
[2017-11-18] MEDS: ATENOLOL 25 MG TAB PO SCH (20:39)
[2017-11-18] MEDS: RIVAROXABAN 20 MG TAB PO SCH (20:39)
--- NOTE | 2017-11-18 21:10 | PN ---
PROGRESS NOTE DATE OF SERVICE: November 18, 2017 Patient is a 77 -year-old pleasant white male admitted to the hospital for acute pancreatitis. He is doing much better and symptoms are gradually improving. This morning, he had an episode of tachycardia and he is being transferred [facility]. He is on a soft diet, tolerating well. PHYSICAL EXAMINATION: He appears comfortable. No apparent distress. VITAL SIGNS: Stable. Blood pressure is 130/86, pulse rate 82 per minute and afebrile. HEENT: Examination unremarkable. Conjunctivae pink. Sclerae anicteric. Oral cavity no lesions. NECK: No jugular venous distention or lymph node enlargement. The chest was clear to auscultation. Heart regular rate and rhythm. Abdomen soft. Bowel sounds are positive. No organomegaly. Extremities no pedal edema. Skin no rashes. NEUROLOGIC: Alert and oriented times three. No focal deficits. LAB: Lipase is 199, amylase is 30. Basic metabolic panel is within normal limits. IMPRESSION: 1. Acute pancreatitis of unclear etiology. So far, workup including and IgG4 levels are negative which autoimmune pancreatitis. The etiology remains unclear. 2. Episode of atrial tachycardia for which patient is being transferred [facility]. RECOMMENDATION: 1. Continue with a low-fiber diet. 2. Since the pancreatitis has resolved, we will sign off. 3. The patient was advised to follow up in 2 weeks for further workup. MMODL / IJN: [id number] /
--- NOTE | 2017-11-18 21:40 | PN ---
PROGRESS NOTE SUBJECTIVE: This is a 77-year-old male who has a chest CTA for elevated D-dimer today which came back negative for pulmonary embolism. He has tachycardia with possible atrial fibrillation. He was given Tenormin 25 mg b.i.d. for severe tachycardia in 130s to 140s. Sodium 136, potassium 4.4, calcium is 8. Sugars in the low 100s to 200s. BUN is 15, creatinine 0.95. ASSESSMENT: Tachycardia, we will put him on the monitor. Increase atenolol 25 b.i.d. Do an MRI of the abdomen as he has elevated CA99 of 23. Await consultation from GI and surgery. His diet has been advanced. MMODL / IJN: [id number] /
[2017-11-19] MEDS: SODIUM CHLORIDE 0.9% 1,000 ML IV SCH ×3 (05:49→22:57)
[2017-11-19] MEDS: DILTIAZEM 50 MG in SODIUM CHLORIDE 0.9% 40 ML IV SCH ×4 (06:17→22:53)
[2017-11-19] MEDS: FOLIC ACID 1 MG TAB PO SCH (09:20)
[2017-11-19] MEDS: CHOLECALCIFEROL 1,000 UNIT TAB PO SCH (09:20)
[2017-11-19] MEDS: FUROSEMIDE 20 MG TAB PO SCH (09:20)
[2017-11-19] MEDS: LOSARTAN 50 MG TAB PO SCH (09:20)
[2017-11-19] MEDS: FERROUS SULFATE 325 MG TAB PO SCH ×2 (09:20→20:11)
[2017-11-19] MEDS: PANTOPRAZOLE 40 MG TABLET PO SCH (09:22)
[2017-11-19] MEDS ORDERED: PROPAFENONE 150 MG TAB PO STA (10:55)
[2017-11-19] MEDS ORDERED: DIAZEPAM 5 MG TAB PO STA (10:55)
[2017-11-19] MEDS: ATENOLOL 25 MG TAB PO SCH (12:29)
--- NOTE | 2017-11-19 13:16 | ECHOF ---
Referral Reason:afib MEASUREMENTS -------- HEIGHT: 177.8 cm WEIGHT: 107.5 kg BP: 109/77 RVIDd: 3.6 cm (< 3.3) IVSd: 1.3 cm (0.6 - 1.1) LVIDd: 3.9 cm (3.9 - 5.3) LVPWd: 1.2 cm (0.6 - 1.1) IVSs: 1.4 cm LVIDs: 3.1 cm LVPWs: 1.7 cm LA Diam: 3.6 cm (2.7 - 3.8) LAESV Index (A-L): 28.41 ml/m Ao Diam: 4.3 cm (2.0 - 3.7) AV Cusp: 1.9 cm (1.5 - 2.6) MV EXCURSION: 11.800 mm (> 18.000) MV EF SLOPE: 60 mm/s (70 - 150) EPSS: 0.9 cm RAP: 5.00 mmHg RVSP: 43.57 mmHg FINDINGS -------- Atrial fibrillation. This was a technically adequate study. The left ventricular size is normal. There is mild concentric left ventricular hypertrophy. Overa ll left ventricular systolic function is low-normal with, an EF between 50 - 55 %. The right ventricle is mildly enlarged. Normal LA size by volume 22+/-6 ml/m2. The right atrium is normal in size. There is mild aortic valve sclerosis. There is mild aortic regurgitation. The mitral valve leaflets are mildly thickened. Mild mitral annular calcification present. Mild m itral regurgitation is present. Moderate tricuspid regurgitation present. There is mild pulmonary hypertension. The right ventric ular systolic pressure, as measured by Doppler, is 43.57mmHg. Trace/mild (physiologic) pulmonic regurgitation. The aortic root is dilated measuring 4.3cm. Normal inferior vena cava with normal inspiratory collapse consistent with estimated right atrial pre ssure of 5 mmHg. The inferior vena cava is mildly dilated. There is no pericardial effusion. CONCLUSIONS -------- 1. Atrial fibrillation. 2. This was a technically adequate study. 3. The left ventricular size is normal. 4. There is mild concentric left ventricular hypertrophy. 5. Overall left ventricular systolic function is low-normal with, an EF between 50 - 55 %. 6. The right ventricle is mildly enlarged. 7. Normal LA size by volume 22+/-6 ml/m2. 8. The right atrium is normal in size. 9. There is mild aortic valve sclerosis. 10. There is mild aortic regurgitation. 11. The mitral valve leaflets are mildly thickened. 12. Mild mitral annular calcification present. 13. Mild mitral regurgitation is present. 14. Moderate tricuspid regurgitation present. 15. There is mild pulmonary hypertension. 16. The right ventricular systolic pressure, as measured by Doppler, is 43.57mmHg. 17. Trace/mild (physiologic) pulmonic regurgitation. 18. The aortic root is dilated measuring 4.3cm. 19. Normal inferior vena cava with normal inspiratory collapse consistent with estimated right atrial pressure of 5 mmHg. 20. The inferior vena cava is mildly dilated. 21. There is no pericardial effusion. BIOMEDICAL EQUIPMENT SUPPORT SPECIALIST: Marlyn Ocasio RDCS
--- NOTE | 2017-11-19 13:59 | P.PN ---
Subjective Progress Note Date: 11/19/17 77-year-old male sitting up on the edge of the bed taking a diet. The lipase is down to 114. Admission lipase 5825 Patient states abdominal discomfort has significantly improved. Denies any nausea vomiting. Objective - Vital Signs Vital signs: Vital Signs Temp 97.7 F 11/19/17 04:00 Pulse 131 H 11/19/17 04:00 Resp 20 11/19/17 04:00 BP 109/77 11/19/17 04:00 Pulse Ox 95 11/19/17 04:00 Intake & Output 11/18/17 11/19/17 11/19/17 18:59 06:59 18:59 Intake Total 1240 838.334 476 Output Total 900 400 Balance 340 438.334 476 Weight 107.8 kg Intake: Intake, IV Titration 800 118.334 Amount Diltiazem 50 mg In Sodium 118.334 Chloride 0.9% 40 ml @ 10 MG/HR 10 mls/hr IV .Q5H [facility] Rx#:[id number] Sodium Chloride 0.9% 1, 800 000 ml @ 100 mls/hr IV . 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 History of a prior pulmonary emboli DVT per patient report CAT scan abdomen and pelvis pancreas abnormal attenuation adjacent to the head of the pancreas no definitive pancreatic mass New-onset constipation History of obstructive sleep apnea with CPAP therapy History of a prior 10-20 years open cholecystectomy Echocardiogram November 19 left ventricular systolic function EF between 50-55% Plan Pain control DVT and GI prophylaxis Stable from a surgical perspective for discharge defer to the timing to the attending The above impression and plan of care have been discussed and directed by signing physician. Tasneem Batista nurse practitioner acting as scribe for signing physician.
--- NOTE | 2017-11-19 16:26 | CONS ---
CONSULTATION DATE OF CONSULTATION: 11/18/2017 Mr. Arango is a 77-year-old gentleman who was seen in consultation because of an episode of tachycardia. Patient's medical records were reviewed. This patient initially presented to [facility] with abdominal pain. His lipase and serum amylase were elevated and the patient was transferred over here for further management for the pancreatitis. Patient has a prior history of cholecystectomy. Patient had a CT scan of the abdomen done which showed evidence of duodenitis and pancreatitis. This morning patient had an episode of tachycardia. The EKG was done which is suggestive of atrial tachycardia. CT scan of the chest was performed. There was no evidence of pulmonary embolism. Patient had an elevated D-dimer test, which could be secondary to acute pancreatitis. PAST MEDICAL HISTORY: 1. History of pulmonary embolism. 2. History of GERD. 3. Patient is using a CPAP machine. 4. History of cholecystectomy. 5. Prior cardiac catheterization. HOME MEDICATIONS: 1. Fenofibrate. 2. Folic acid. 3. Xarelto. 4. Tylenol. 5. Lasix. 6. Cozaar. PHYSICAL EXAMINATION: Physical examination at present reveals a 77-year-old gentleman who is obesely built, does not appear to be in any acute distress. Patient's heart rate is 130 per minute. Blood pressure was 109/77 mmHg. HEENT examination was negative. NECK: Supple. There is no increase in jugular venous pressure. Both the carotid pulses are felt. There was no bruit. Chest is symmetrical. HEART: The PMI is not felt. First and second heart sounds were normal. LUNGS: Clinically clear to auscultation and percussion. ABDOMEN: Soft. EXTREMITIES: Peripheral pulsations are 2+. EKG done today shows atrial tachycardia. FINAL IMPRESSION: 1. This patient has evidence of supraventricular tachycardia which most likely is atrial tachycardia. AV nirmal reentry tachycardia cannot be entirely excluded. 2. The patient is recovering from acute pancreatitis. CT scan of the chest is not suggestive of pulmonary embolism. RECOMMENDATIONS: We will transfer the patient to the [facility]. We will try patient on Adenocard and if that does not work, we will start the patient on Cardizem drip to control the rate. MMODL / IJN: [id number] /
[2017-11-19] MEDS: FENOFIBRATE 160 MG TAB PO SCH (20:11)
[2017-11-19] MEDS: METOPROLOL TARTRATE 25 MG TAB PO SCH (20:11)
[2017-11-19] MEDS: RIVAROXABAN 20 MG TAB PO SCH (20:11)
--- NOTE | 2017-11-19 20:53 | P.PN ---
Progress Note - Text Progress Note Date: 11/19/17 Patient seen and well-known to me. Patient had been scheduled for a paraesophageal hiatal hernia repair 3 weeks ago however secondary to dyspnea, he had been hospitalized and his surgery was cancelled. Patient was due for follow-up as an outpatient. Upon further discussion, patient had pancreatitis of unclear etiology. He reports being ready for discharge however due to atrial fibrillation, his hospitalization has been continued. Management per cardiology for atrial fibrillation. Will follow. Patient will follow up as outpatient.
--- NOTE | 2017-11-19 22:02 | PN ---
PROGRESS NOTE SUBJECTIVE: This is a 77-year-old white male with acute pancreatitis with atrial fibrillation, rapid ventricular response. He had a CT scan of the chest which was negative for pulmonary embolism and started on Atenolol for tachycardia. The patient is getting short of breath with ambulation today. Cardiovascular S1, S2. Lungs clear. GI soft. Hematology negative Homans. Psych: Fair mood and affect. ASSESSMENT: 1. Acute pancreatitis. 2. Atrial fibrillation, rapid ventricular response. 3. Hypertension. 4. Obesity. Await cardiology recommendations, possibly pulmonary. MMODL / IJN: [id number] /
[2017-11-19] MEDS: HYDROcodone/APAP 5-325MG 1 EACH TAB PO PRN (22:59)
[2017-11-19] MEDS: PROPAFENONE 150 MG TAB PO SCH (22:59)
[2017-11-20] MEDS: HYDROcodone/APAP 5-325MG 1 EACH TAB PO PRN ×2 (03:11→23:20)
[2017-11-20] MEDS: DILTIAZEM 50 MG in SODIUM CHLORIDE 0.9% 40 ML IV SCH ×2 (03:11→08:19)
[2017-11-20] MEDS: PANTOPRAZOLE 40 MG TABLET PO SCH (06:32)
[2017-11-20] MEDS: PROPAFENONE 150 MG TAB PO SCH (08:28)
[2017-11-20] MEDS: FOLIC ACID 1 MG TAB PO SCH (08:28)
[2017-11-20] MEDS: FUROSEMIDE 20 MG TAB PO SCH (08:28)
[2017-11-20] MEDS: FERROUS SULFATE 325 MG TAB PO SCH ×2 (08:28→20:23)
[2017-11-20] MEDS: LOSARTAN 50 MG TAB PO SCH (08:28)
[2017-11-20] MEDS: METOPROLOL TARTRATE 25 MG TAB PO SCH (08:28)
[2017-11-20] MEDS: CHOLECALCIFEROL 1,000 UNIT TAB PO SCH (08:29)
[2017-11-20 10:42] LABS: Basophils # (A) 0.1 k/uL (0-0.2); Basophils % (A) 0 %; Eosinophils # (A) 0.3 k/uL (0-0.7); Eosinophils % (A) 2 %; HCT 37.8 % (39.0-53.0); HGB 11.9 gm/dL (13.0-17.5); Lymphocytes # (A) 0.7 k/uL (1.0-4.8); Lymphocytes % (A) 5 %; MCH 29.3 pg (25.0-35.0); MCHC 31.5 g/dL (31.0-37.0); MCV 93.1 fL (80.0-100.0); Mean Platelet Volume 7.4; Monocytes # (A) 0.9 k/uL (0-1.0); Monocytes % (A) 7 %; Neutrophils # (A) 10.5 k/uL (1.3-7.7); Neutrophils % (A) 83 %; Platelet Count 262 k/uL (150-450); RBC 4.06 m/uL (4.30-5.90); RDW 13.9 % (11.5-15.5); WBC 12.6 k/uL (3.8-10.6)
--- NOTE | 2017-11-20 11:44 | P.PN ---
<LesterAlciraTasneem M - Last Filed: 11/20/17 11:38> Subjective Progress Note Date: 11/20/17 77-year-old male seen examined sitting up in a chair at the bedside. Patient states abdominal pain is gone. MRI was not done yesterday due to patient not able to be fitted into the scanner Patient continues atrial fibrillation being followed by cardiology. Patient is known to Dr. teo salas. Tentatively was scheduled 3 weeks prior for a paraesophageal hiatal hernia repair. Surgery was held at that time secondary to patient developing shortness of breath needed to be hospitalized. Patient states he will follow-up in the outpatient setting Objective - Vital Signs Vital signs: Vital Signs Temp 97.7 F 11/20/17 08:33 Pulse 109 H 11/20/17 08:33 Resp 18 11/20/17 08:33 BP 123/69 11/20/17 08:33 Pulse Ox 93 L 11/20/17 08:33 Intake & Output 11/19/17 11/20/17 11/20/17 18:59 06:59 18:59 Intake Total 1592 500 240 Output Total 200 400 Balance 1392 100 240 Weight 107.8 kg Intake: Intake, IV Titration 200 300 Amount Sodium Chloride 0.9% 1, 200 300 000 ml @ 100 mls/hr IV . Q10H [facility] Rx#:[id number] Oral 1392 200 240 Output: Urine 200 400 Other: Voiding Method Urinal Toilet Toilet # Voids 1 - Exam Physical exam 77-year-old male sitting up in a chair appears in no acute distress Lungs adequate air movement bilaterally Heart S1-S2 audible irregular Abdomen nontender not distended states abdominal discomfort resolved taking diet tolerating no nausea no vomiting Extremities no edema - Labs CBC & Chem 7: 11/20/17 10:23 11/18/17 09:42 Labs: Abnormal Lab Results - Last 24 Hours (Table) 11/20/17 Range/Units 10:23 WBC 12.6 H (3.8-10.6) k/uL RBC 4.06 L (4.30-5.90) m/uL Hgb 11.9 L (13.0-17.5) gm/dL Hct 37.8 L (39.0-53.0) % Neutrophils # 10.5 H (1.3-7.7) k/uL Lymphocytes # 0.7 L (1.0-4.8) k/uL Assessment and Plan Assessment: Impression Present on admission diffuse abdominal pain nausea vomiting bloated with elevated lipase suspect due to acute pancreatitis 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 History of a prior pulmonary emboli DVT per patient report CAT scan abdomen and pelvis pancreas abnormal attenuation adjacent to the head of the pancreas no definitive pancreatic mass New-onset constipation History of obstructive sleep apnea with CPAP therapy History of a prior 10-20 years open cholecystectomy Echocardiogram November 19 left ventricular systolic function EF between 50-55% history of periesophageal hiatal hernia tentatively scheduled for repair 3 weeks prior held secondary to patient developing shortness of breath requiring hospitalization Plan Pain control DVT and GI prophylaxis Stable from a surgical perspective for discharge defer to the timing to the attending The above impression and plan of care have been discussed and directed by signing physician. Tasneem Batista nurse practitioner acting as scribe for signing physician. <Aleyda Larsen N - Last Filed: 11/21/17 08:35> Objective - Vital Signs Vital signs: Vital Signs Temp 97.8 F 11/21/17 04:00 Pulse 126 H 11/21/17 04:00 Resp 18 11/21/17 04:00 BP 135/76 11/21/17 04:00 Pulse Ox 96 11/21/17 04:00 Intake & Output 11/20/17 11/21/17 11/21/17 18:59 06:59 18:59 Intake Total 598 240 Output Total 200 2100 Balance 398 -2100 240 Weight 110.8 kg Intake: Oral 598 240 Output: Urine 200 2100 Other: Voiding Method Toilet Urinal # Voids 1 - Labs CBC & Chem 7: 11/20/17 10:23 11/18/17 09:42 Labs: Abnormal Lab Results - Last 24 Hours (Table) 11/20/17 Range/Units 10:23 WBC 12.6 H (3.8-10.6) k/uL RBC 4.06 L (4.30-5.90) m/uL Hgb 11.9 L (13.0-17.5) gm/dL Hct 37.8 L (39.0-53.0) % Neutrophils # 10.5 H (1.3-7.7) k/uL Lymphocytes # 0.7 L (1.0-4.8) k/uL
--- NOTE | 2017-11-20 12:40 | P.CNPUL ---
History of Present Illness Consult date: 11/20/17 Requesting physician: Brody New Reason for consult: dyspnea Chief complaint: Abdominal pain History of present illness: Is a very pleasant 77-year-old gentleman who follows with Dr. Irish Arango as his primary care physician. He has normal coronaries based on a previous cardiac catheterization that showed no coronary artery disease. He has a history of obstructive sleep apnea with an AHI of 43, maintained on CPAP at a pressure of 11 cm of water. He has a remote history of DVT and pulmonary embolism and has been found to have factor V Leiden and his last episode was approximately 5 years ago and since then the patient has been on long-term anticoagulation is currently on Xarelto. His other comorbidities include hypertension, hyperlipidemia and acid reflux. Recent here to the emergency room back on 11/15/2017 with complaints of abdominal pain. He was transferred here from [facility]. He was found to have pancreatitis. Initial labs revealed amylase is 714 and a lipase of 5825. He said recovered and amylase and lipase are back to within normal limits. He has been tachycardic and evidence of SVT and was transferred here to the selective care unit for the same. Echocardiogram revealed preserved left ventricular systolic function with ejection fraction 50-55%. X-ray shows evidence of mild fluid volume overload. White count 12.6. Hemoglobin 11.9. Creatinine 0.95. CT angiogram was negative for pulmonary embolus. There are tiny bilateral pleural effusions. Otherwise clear. We are consulted today with patient's complaints of increasing shortness of breath. He is however afebrile. Maintaining O2 saturations in the 90s on room air. He is currently sitting up in bed eating lunch. He is awake and alert in no acute distress. He states he is breathing okay at rest but does get dyspneic on minimal exertion. His heart rate has been in the 120s to 140s this morning. Cardiology is following as well. He was given Rythmol and Lopressor this morning. Review of Systems 14 point review of system was conducted. All negative other than as mentioned in the HPI. Past Medical History Past Medical History: Blood Disorder, GERD/Reflux, Hyperlipidemia, Hypertension , Pulmonary Embolus (PE), Renal Disease, Sleep Apnea/CPAP/BIPAP Additional Past Medical History / Comment(s): Factor V Leyden, previous history of DVT and pulmonary embolism, obstructive sleep apnea with an AHI of 43 currently on scene at a pressure of 11, hypertension, hyperlipidemia, acid reflux, hiatal hernia,, gout History of Any Multi-Drug Resistant Organisms: None Reported Past Surgical History: Cholecystectomy, Heart Catheterization Additional Past Surgical History / Comment(s): rt cataract surgery, Past Anesthesia/Blood Transfusion Reactions: Motion Sickness Additional Past Anesthesia/Blood Transfusion Reaction / Comment(s): clausterphobia Past Psychological History: Depression Additional Psychological History / Comment(s): pt lives alone in a 2 story home has 1 porch step. has cpap machine at home no home care services. Smoking Status: Never smoker Past Alcohol Use History: Occasional Additional Past Alcohol Use History / Comment(s): past rare alcohol-none now. Past Drug Use History: None Reported - Past Family History Brother(s) Family Medical History: Cancer Additional Family Medical History / Comment(s): 3 brothers with cancer-2 passed from cancer. 1 brother with factor V Father Family Medical History: No Reported History Additional Family Medical History / Comment(s): at age 90 from old age Mother Family Medical History: Hypertension, Myocardial Infarction (MD) Additional Family Medical History / Comment(s): gout. mom at ge 75 Medications and Allergies Home Medications Medication Instructions Recorded Confirmed Type Allopurinol [Zyloprim] 100 mg PO Q48H 10/18/17 11/15/17 History Cholecalciferol (Vitamin D3) 2,000 unit PO DAILY 10/18/17 11/15/17 History [Vitamin D3] Fenofibrate Nanocrystallized 145 mg PO DAILY 10/18/17 11/15/17 History [Fenofibrate] Ferrous Sulfate [Iron (65 MG 325 mg PO BID 10/18/17 11/15/17 History Elemental)] Folic Acid 0.8 mg PO DAILY 10/18/17 11/15/17 History Rivaroxaban [Xarelto] 20 mg PO DAILY 10/18/17 11/15/17 History Vitamin B Complex 1 cap PO DAILY 10/18/17 11/15/17 History Acetaminophen Tab [Tylenol] 650 mg PO Q6HR PRN tab 10/29/17 11/15/17 Rx Furosemide [Lasix] 20 mg PO DAILY 11/15/17 11/15/17 History Losartan [Cozaar] 50 mg PO DAILY 11/15/17 11/15/17 History Allergies Allergy/AdvReac Type Severity Reaction Status Date / Time No Known Allergies Allergy Verified 10/26/17 22:43 Physical Exam Vitals: Vital Signs Temp Pulse Pulse Resp BP Pulse Ox 11/20/17 11:54 97.7 F 126 H 109 H 16 118/64 94 L 11/20/17 08:33 97.7 F 140 H 109 H 18 123/69 93 L 11/20/17 04:00 97.4 F L 127 H 18 131/76 92 L 11/19/17 23:33 97.1 F L 133 H 18 142/93 92 L 11/19/17 20:00 97.5 F L 138 H 18 169/89 94 L 11/19/17 16:00 96.9 F L 109 H 109 H 12 108/58 93 L Intake and Output 11/19/17 11/20/17 11/20/17 22:59 06:59 14:59 Intake Total 736 240 Output Total 200 200 Balance 536 -200 240 Intake: Intake, IV Titration 300 Amount Sodium Chloride 0.9% 1, 300 000 ml @ 100 mls/hr IV . Q10H [facility] Rx#:[id number] Oral 436 240 Output: Urine 200 200 Other: Voiding Method Toilet Toilet Toilet # Voids 1 Weight 107.8 kg GENERAL EXAM: Alert, active, comfortable in no apparent distress. HEAD: Normocephalic. EYES: Normal reaction of pupils, equal size. NOSE: Clear with pink turbinates. THROAT: No erythema or exudates. NECK: No masses, no JVD. CHEST: No chest wall deformity. LUNGS: Equal air entry with crackles in the posterior bases. Diminished.. CVS: S1 and S2 normal with no audible murmur, regular rhythm. Tachycardic. ABDOMEN: No hepatosplenomegaly, normal bowel sounds, no guarding or rigidity. SPINE: No scoliosis or deformity SKIN: No rashes CENTRAL NERVOUS SYSTEM: No focal deficits, tone is normal in all 4 extremities. EXTREMITIES: There is no peripheral edema. No clubbing, no cyanosis. Peripheral pulses are intact. Results - Laboratory Findings CBC and BMP: 11/20/17 10:23 11/18/17 09:42 PT/INR, D-dimer PT 11.8 sec (9.0-12.0) 11/16/17 07:43 INR 1.2 (<1.2) H 11/16/17 07:43 D-Dimer 4.48 mg/L FEU (<0.60) H 11/18/17 09:42 Abnormal lab findings: Abnormal Labs 11/15/17 11/15/17 11/15/17 15:06 17:40 17:40 WBC RBC Hgb Hct Neutrophils # Lymphocytes # 0.6 L INR D-Dimer Sodium Chloride 109 H BUN 24 H Glucose 124 H Calcium Total Protein 5.7 L Albumin 3.4 L HDL Cholesterol 35 L Amylase Lipase 11467 H CA 19-9 Antigen IgG1 396.0 L 11/15/17 11/16/17 11/16/17 17:40 07:43 07:43 WBC 11.9 H RBC 4.24 L Hgb 12.9 L Hct Neutrophils # 10.5 H Lymphocytes # 0.5 L INR D-Dimer Sodium Chloride 109 H BUN Glucose 132 H Calcium 8.0 L Total Protein 5.3 L Albumin 3.0 L HDL Cholesterol 34 L Amylase 714 H* Lipase 5825 H CA 19-9 Antigen 123.6 H IgG1 11/16/17 11/17/17 11/18/17 07:43 07:42 07:37 WBC RBC Hgb Hct Neutrophils # Lymphocytes # INR 1.2 H D-Dimer Sodium Chloride BUN Glucose 134 H 131 H Calcium 7.6 L 7.9 L Total Protein 4.5 L 4.5 L Albumin 2.5 L 2.4 L HDL Cholesterol Amylase 137 H Lipase 780 H CA 19-9 Antigen IgG1 11/18/17 11/18/17 11/20/17 09:42 09:42 10:23 WBC 12.6 H RBC 4.06 L Hgb 11.9 L Hct 37.8 L Neutrophils # 10.5 H Lymphocytes # 0.7 L INR D-Dimer 4.48 H Sodium 136 L Chloride BUN Glucose 203 H Calcium 8.0 L Total Protein Albumin HDL Cholesterol Amylase <30 L Lipase CA 19-9 Antigen IgG1 - Diagnostic Findings Chest x-ray: image reviewed CT scan - chest: image reviewed Assessment and Plan Assessment: Impression: #1 Dyspnea suspect secondary to supraventricular tachycardia, AVNRT not excluded. Treated with Rythmol and Lopressor. #2 Acute pancreatitis with improved amylase and lipase levels. #3 History of DVT and pulmonary embolism maintained on Xarelto. #4 Factor 5 Leiden #5 Obstructive sleep apnea with an AHI of 43, currently on CPAP in the outpatient setting with pressures of 11 cm of water. #6 Obesity. #7 Hypertension. #8 Acid reflux and hiatal hernia. Plan: The patient was seen and evaluated by Dr. Allan. Chest x-ray and labs were reviewed. We'll continue with the patient's current medications for now. Utilizing BiPAP in the evenings. Increase his activity as tolerated. Heart rate control per cardiology. We'll continue to follow. I, the cosigning physician, performed a history & physical examination of the patient. Lungs sounds are clear. Maintaining good O2 saturations in the 90s on room air. I discussed the assessment and plan of care with my nurse practitioner, Chelsey Nicole. I attest to the above consultation as dictated by her. Time with Patient: Greater than 30
--- NOTE | 2017-11-20 14:21 | P.PN ---
Subjective Progress Note Date: 11/20/17 This is a 77-year-old gentleman who was initially seen in consultation by Dr. VC Sepulveda. He had an episode of a tachycardia which is the reason a consultation was requested. He presented initially to [facility] with symptoms of abdominal pain and was found to have pancreatitis. Patient was seen and examined this morning, complaining of some abdominal discomfort, he states he moved his bowels but only a very small amount. Patient 's rate this morning was noted to be in the 120 range, echocardiogram with Doppler study revealed a normal left ventricular systolic function. Objective - Vital Signs Vital signs: Vital Signs Temp 97.7 F 11/20/17 11:54 Pulse 109 H 11/20/17 11:54 Resp 18 11/20/17 11:54 BP 118/64 11/20/17 11:54 Pulse Ox 94 L 11/20/17 11:54 Intake & Output 11/19/17 11/20/17 11/20/17 18:59 06:59 18:59 Intake Total 1592 500 240 Output Total 200 400 Balance 1392 100 240 Weight 107.8 kg Intake: Intake, IV Titration 200 300 Amount Sodium Chloride 0.9% 1, 200 300 000 ml @ 100 mls/hr IV . Q10H [facility] Rx#:[id number] Oral 1392 200 240 Output: Urine 200 400 Other: Voiding Method Urinal Toilet Toilet # Voids 1 - Exam GENERAL EXAM: Alert, active, comfortable in no apparent distress. HEAD: Normocephalic. EYES: Normal reaction of pupils, equal size. NOSE: Clear with pink turbinates. THROAT: No erythema or exudates. NECK: No masses, no JVD. CHEST: No chest wall deformity. LUNGS: Equal air entry with crackles in the posterior bases. Diminished.. CVS: S1 and S2 normal with no audible murmur, regular rhythm. Tachycardic. ABDOMEN: No hepatosplenomegaly, normal bowel sounds, no guarding or rigidity. Generalized tenderness SPINE: No scoliosis or deformity SKIN: No rashes CENTRAL NERVOUS SYSTEM: No focal deficits, tone is normal in all 4 extremities. EXTREMITIES: There is no peripheral edema. No clubbing, no cyanosis. Peripheral pulses are intact. - Labs CBC & Chem 7: 11/20/17 10:23 11/18/17 09:42 Labs: Abnormal Lab Results - Last 24 Hours (Table) 11/20/17 Range/Units 10:23 WBC 12.6 H (3.8-10.6) k/uL RBC 4.06 L (4.30-5.90) m/uL Hgb 11.9 L (13.0-17.5) gm/dL Hct 37.8 L (39.0-53.0) % Neutrophils # 10.5 H (1.3-7.7) k/uL Lymphocytes # 0.7 L (1.0-4.8) k/uL Assessment and Plan Plan: Assessment and plan #1 acute pancreatitis #2 atrial tachycardia #3 factor V Leiden deficiency #4 obstructive sleep apnea #5 obesity #6 hypertension 7 acid reflux Plan We will increase the metoprolol to 50 mg one tablet by mouth twice a day, continue the rest of the patient's medications. DNP note has been reviewed, I agree with a documented findings and plan of care. Patient was seen and examined.
[2017-11-20] MEDS ORDERED: BISACODYL 10 MG SUPP RECTAL STA (14:52)
--- NOTE | 2017-11-20 15:50 | XR ---
EXAMINATION TYPE: XR chest 2V DATE OF EXAM: 11/20/2017 COMPARISON: 10/26/2017 INDICATION: Dyspnea TECHNIQUE: Frontal and lateral views of the chest are obtained. FINDINGS: The heart size is normal. The pulmonary vasculature is normal. Mild plate atelectasis in the right midlung. Some mild plate atelectasis may be at the left base.. IMPRESSION: 1. Bilateral mild plate atelectasis.
[2017-11-20] MEDS: SODIUM CHLORIDE 0.9% 1,000 ML IV SCH ×2 (16:02→22:46)
[2017-11-20] MEDS: METOPROLOL TARTRATE 50 MG TAB PO SCH ×2 (16:19→20:23)
[2017-11-20] MEDS ORDERED: BISACODYL 5 MG TABLET.DR PO STA (18:37)
[2017-11-20] MEDS: RIVAROXABAN 20 MG TAB PO SCH (20:23)
[2017-11-20] MEDS: FENOFIBRATE 160 MG TAB PO SCH (20:23)
[2017-11-20] MEDS ORDERED: METOPROLOL TARTRATE 50 MG TAB PO SCH (21:00)
--- NOTE | 2017-11-21 | PN ---
PROGRESS NOTE DATE OF SERVICE: 11/20/2017. SUBJECTIVE: A 77-year-old white male with acute pancreatitis and acute abdominal pain with atrial fibrillation, rapid ventricular response versus SVT. He has been placed on Rythmol. We are monitoring his cardiac rhythm overnight. Possible discharge home. pancreatic status is improving. OBJECTIVE: CARDIOVASCULAR: S1 and S2. LUNGS: Clear. GI: Soft. He is tachycardic, irregular rhythm. ASSESSMENT: 1. Arrhythmia. 2. Supraventricular tachycardia. 3. Acute pancreatitis. 4. Hypertension. 5. Obesity. PLAN: Continue current treatments. Add Rythmol. Possible discharge home soon. MMODL / IJN: [id number] /
[2017-11-21] MEDS: HYDROcodone/APAP 5-325MG 1 EACH TAB PO PRN ×2 (03:29→14:52)
[2017-11-21] MEDS: SODIUM CHLORIDE 0.9% 1,000 ML IV SCH ×2 (06:29→18:25)
[2017-11-21] MEDS: PANTOPRAZOLE 40 MG TABLET PO SCH (06:30)
[2017-11-21] MEDS: CHOLECALCIFEROL 1,000 UNIT TAB PO SCH (08:44)
[2017-11-21] MEDS: FERROUS SULFATE 325 MG TAB PO SCH ×2 (08:45→20:31)
[2017-11-21] MEDS: LOSARTAN 50 MG TAB PO SCH (08:45)
[2017-11-21] MEDS: FUROSEMIDE 20 MG TAB PO SCH (08:45)
[2017-11-21] MEDS: METOPROLOL TARTRATE 50 MG TAB PO SCH ×3 (08:45→20:31)
[2017-11-21] MEDS: FOLIC ACID 1 MG TAB PO SCH (08:45)
[2017-11-21 10:48] VITALS: BMI 35.0
[2017-11-21] MEDS: VERAPAMIL 80 MG TAB PO SCH ×3 (11:18→20:31)
--- NOTE | 2017-11-21 11:32 | P.PN ---
Subjective Progress Note Date: 11/21/17 Principal diagnosis: Acute pancreatitis This is a very pleasant 77-year-old gentleman who follows with Dr. Irish Arango as his primary care physician. He has normal coronaries based on a previous cardiac catheterization that showed no coronary artery disease. He has a history of obstructive sleep apnea with an AHI of 43, maintained on CPAP at a pressure of 11 cm of water. He has a remote history of DVT and pulmonary embolism and has been found to have factor V Leiden deficiency and his last episode was approximately 5 years ago and since then the patient has been on long-term anticoagulation is currently on Xarelto. His other comorbidities include hypertension, hyperlipidemia and acid reflux. Presented here to the emergency room back on 11/15/2017 with complaints of abdominal pain. He was transferred here from [facility]. He was found to have pancreatitis. Initial labs revealed amylase is 714 and a lipase of 5825. He said recovered and amylase and lipase are back to within normal limits. He has been tachycardic and evidence of SVT and was transferred here to the selective care unit for the same. Echocardiogram revealed preserved left ventricular systolic function with ejection fraction 50-55%. X-ray shows evidence of mild fluid volume overload. White count 12.6. Hemoglobin 11.9. Creatinine 0.95. CT angiogram was negative for pulmonary embolus. There are tiny bilateral pleural effusions. Otherwise clear. We are consulted today with patient's complaints of increasing shortness of breath. He is however afebrile. Maintaining O2 saturations in the 90s on room air. He is currently sitting up in bed eating lunch. He is awake and alert in no acute distress. He states he is breathing okay at rest but does get dyspneic on minimal exertion. His heart rate has been in the 120s to 140s this morning. Cardiology is following as well. He was given Rythmol and Lopressor this morning. The patient is seen again today 11/21/2017 in follow-up on the selective care unit. He is awake and alert in no acute distress. He denies any worsening shortness of breath, cough or congestion. He is maintaining good O2 saturations in the 90s on room air. His pancreatitis has resolved. He continues to have ongoing issues with atrial tachycardia. He is currently on metoprolol 50 mg 3 times a day. White count 12.6. Hemoglobin 11.9. Objective - Vital Signs Vital signs: Vital Signs Temp 97.8 F 11/21/17 04:00 Pulse 126 H 11/21/17 04:00 Resp 18 11/21/17 04:00 BP 135/76 11/21/17 04:00 Pulse Ox 96 11/21/17 04:00 Intake & Output 11/20/17 11/21/17 11/21/17 18:59 06:59 18:59 Intake Total 598 240 Output Total 200 2100 Balance 398 -2100 240 Weight 110.8 kg 110.8 kg Intake: Oral 598 240 Output: Urine 200 2100 Other: Voiding Method Toilet Urinal # Voids 1 2 - Exam GENERAL EXAM: Alert, active, comfortable in no apparent distress. HEAD: Normocephalic. EYES: Normal reaction of pupils, equal size. NOSE: Clear with pink turbinates. THROAT: No erythema or exudates. NECK: No masses, no JVD. CHEST: No chest wall deformity. LUNGS: Equal air entry with crackles in the posterior bases. Diminished.. CVS: S1 and S2 normal with no audible murmur, regular rhythm. Tachycardic. ABDOMEN: No hepatosplenomegaly, normal bowel sounds, no guarding or rigidity. SPINE: No scoliosis or deformity SKIN: No rashes CENTRAL NERVOUS SYSTEM: No focal deficits, tone is normal in all 4 extremities. EXTREMITIES: There is no peripheral edema. No clubbing, no cyanosis. Peripheral pulses are intact. - Labs CBC & Chem 7: 11/20/17 10:23 11/18/17 09:42 Assessment and Plan Assessment: Impression: #1 Dyspnea suspect secondary to supraventricular tachycardia, AVNRT not excluded. Currently on Lopressor 50 mg 3 times a day now. #2 Acute pancreatitis with improved amylase and lipase levels. Resolved. #3 History of DVT and pulmonary embolism maintained on Xarelto. #4 Factor V Leiden deficiency. #5 Obstructive sleep apnea with an AHI of 43, currently on CPAP in the outpatient setting with pressures of 11 cm of water. #6 Obesity. #7 Hypertension. #8 Acid reflux and hiatal hernia. Plan: The patient was seen and evaluated by Dr. Allan. We'll continue with the patient's current medications for now. Utilizing BiPAP in the evenings. Increase his activity as tolerated. Heart rate control per cardiology. No on metoprolol 50 mg 3 times a day. We'll continue to follow. I, the cosigning physician, performed a history & physical examination of the patient. Lungs sounds are clear. Maintaining good O2 saturations in the 90s on room air. I discussed the assessment and plan of care with my nurse practitioner, Chelsey Nicole. I attest to the above consultation as dictated by her.
--- NOTE | 2017-11-21 15:01 | CDI ---
Last Revision, March 2017 Documentation Clarification Form Date: 11/21/2017 2:26:26 PM From: Lolis Mercado RN, CCDS Admit Date: 11/15/2017 11:21:00 AM Patient Name: Joe Arango Visit Number: [id number] Discharge Date: ATTENTION: The Clinical Documentation Specialists (CDI) and [facility] Coding Staff appreciate your assistance in clarifying documentation. Please respond to the clarification below the line at the bottom and electronically sign. The CDI & [facility] Coding staff will review the response and follow-up if needed. Please note: Queries are made part of the Legal Health Record. If you have any questions, please contact the author of this message via ITS. Brody Atkinson MD Protein Calorie Malnutrition has been documented in your progress note on 11/17/17 -11/18/17. History/Risk Factors: Factor V Leyden, Hypertension Pulmonary Embolus, Clinical Indicators: Patient developed abdominal pain. He has no history of pancreatitis. He states he does not drink any alcohol. Labs: Albumin 3.4, 3.0, 2.5, 2.4. Total Protein 5.7. 5.3, 4.5, 4.5 Nutrition Intake: Good 75-100% consumed. Treatment: Dietary Consult: Yes: no nutrition diagnosis at this time Low-Fat diet Lab monitoring: In your professional opinion, can you please clarify if these findings signify one of the following conditions? Mild Protein-Calorie Malnutrition Moderate Protein-Calorie Malnutrition Severe Protein-Calorie malnutrition Other condition, please specify Unable to determine Please continue to document in your progress notes and discharge summary in order to capture severity of illness and risk of mortality. Include clinical findings that support your diagnosis. MTDD
--- NOTE | 2017-11-21 15:22 | P.PN ---
Subjective Progress Note Date: 11/21/17 This is a 77-year-old gentleman who was initially seen in consultation by Dr. VC Sepulveda. He had an episode of a tachycardia which is the reason a consultation was requested. He presented initially to [facility] with symptoms of abdominal pain and was found to have pancreatitis. Patient was seen and examined this morning, complaining of some abdominal discomfort, he states he moved his bowels but only a very small amount. Patient 's rate this morning was noted to be in the 120 range, echocardiogram with Doppler study revealed a normal left ventricular systolic function. 11/21/2017 Patient seen and examined this morning, abdominal discomfort is much improved, he did have a significant bowel movement yesterday. He's complaining of discomfort today from gout. His heart rate this morning in the 1:30 range. We will add verapamil 80 mg one tablet by mouth 3 times a day to his medication regime. Objective - Vital Signs Vital signs: Vital Signs Temp 98.1 F 11/21/17 12:00 Pulse 143 H 11/21/17 12:00 Resp 16 11/21/17 12:00 BP 114/79 11/21/17 12:00 Pulse Ox 97 11/21/17 12:00 Intake & Output 11/20/17 11/21/17 11/21/17 18:59 06:59 18:59 Intake Total 598 1080 Output Total 200 2100 Balance 398 -2100 1080 Weight 110.8 kg 110.8 kg Intake: Intake, IV Titration 600 Amount Sodium Chloride 0.9% 1, 600 000 ml @ 100 mls/hr IV . Q10H [facility] Rx#:[id number] Oral 598 480 Output: Urine 200 2100 Other: Voiding Method Toilet Urinal Urinal # Voids 1 3 - Exam GENERAL EXAM: Alert, active, comfortable in no apparent distress. HEAD: Normocephalic. EYES: Normal reaction of pupils, equal size. NOSE: Clear with pink turbinates. THROAT: No erythema or exudates. NECK: No masses, no JVD. CHEST: No chest wall deformity. LUNGS: Equal air entry with crackles in the posterior bases. Diminished.. CVS: S1 and S2 normal with no audible murmur, regular rhythm. Tachycardic. ABDOMEN: No hepatosplenomegaly, normal bowel sounds, no guarding or rigidity. Generalized tenderness SPINE: No scoliosis or deformity SKIN: No rashes CENTRAL NERVOUS SYSTEM: No focal deficits, tone is normal in all 4 extremities. EXTREMITIES: There is no peripheral edema. No clubbing, no cyanosis. Peripheral pulses are intact. - Labs CBC & Chem 7: 11/20/17 10:23 11/18/17 09:42 Assessment and Plan Plan: Assessment and plan #1 acute pancreatitis #2 atrial tachycardia #3 factor V Leiden deficiency #4 obstructive sleep apnea #5 obesity #6 hypertension 7 acid reflux Plan We will add verapamil 80 mg one tablet by mouth 3 times a day to the patient's medication regime today for more optimal heart rate control. DNP note has been reviewed, I agree with a documented findings and plan of care. Patient was seen and examined.
[2017-11-21] MEDS: methylPREDNISolone SOD SUCCI 125 MG/2 ML VIAL IV SCH ×2 (17:43→23:27)
[2017-11-21] MEDS: COLCHICINE 0.6 MG EACH PO SCH (17:43)
--- NOTE | 2017-11-21 19:40 | PN ---
PROGRESS NOTE SUBJECTIVE: This is a 77-year-old white male with acute pancreatitis, atrial fibrillation, rapid ventricular response versus SVT. He was started on Verapamil today. Possible discharge home in the next 24-48 hours if cleared by Cardiology. He is also complaining of gout in his left great toe. He is unable to bend his toe. He has a history of gout in the past. Colcrys was started at 0.6 mg a day and IV Solu-Medrol started at 60 q.8. Lungs are clear. GI is soft. HEMATOLOGY: Negative Homans. PSYCH: Fair mood and affect. ASSESSMENT: 1. Acute pancreatitis. 2. Acute gout. 3. Supraventricular tachycardia versus atrial fibrillation. Continue current treatment. MMODL / IJN: [id number] /
[2017-11-21] MEDS: RIVAROXABAN 20 MG TAB PO SCH (20:31)
[2017-11-21] MEDS: FENOFIBRATE 160 MG TAB PO SCH (20:31)
[2017-11-22] MEDS: SODIUM CHLORIDE 0.9% 1,000 ML IV SCH ×2 (04:36→16:57)
[2017-11-22] MEDS: PANTOPRAZOLE 40 MG TABLET PO SCH (06:26)
[2017-11-22] MEDS: VERAPAMIL 80 MG TAB PO SCH (09:52)
[2017-11-22] MEDS: methylPREDNISolone SOD SUCCI 125 MG/2 ML VIAL IV SCH ×2 (09:52→16:58)
[2017-11-22] MEDS: FUROSEMIDE 20 MG TAB PO SCH (09:52)
[2017-11-22] MEDS: FERROUS SULFATE 325 MG TAB PO SCH ×2 (09:52→19:50)
[2017-11-22] MEDS: COLCHICINE 0.6 MG EACH PO SCH (09:52)
[2017-11-22] MEDS: FOLIC ACID 1 MG TAB PO SCH (09:53)
[2017-11-22] MEDS: METOPROLOL TARTRATE 50 MG TAB PO SCH ×3 (09:53→22:11)
[2017-11-22] MEDS: LOSARTAN 50 MG TAB PO SCH (09:53)
[2017-11-22] MEDS: CHOLECALCIFEROL 1,000 UNIT TAB PO SCH (11:50)
--- NOTE | 2017-11-22 13:46 | CDI ---
Last Revision, March 2017 Documentation Clarification Form Date: 11/21/2017 2:26:00 PM From: Lolis Mercado RN, CCDS Admit Date: 11/15/2017 11:21:00 AM Patient Name: Joe Arango Visit Number: [id number] Discharge Date: ATTENTION: The Clinical Documentation Specialists (CDI) and [facility] Coding Staff appreciate your assistance in clarifying documentation. Please respond to the clarification below the line at the bottom and electronically sign. The CDI & [facility] Coding staff will review the response and follow-up if needed. Please note: Queries are made part of the Legal Health Record. If you have any questions, please contact the author of this message via ITS. Brody Zimmerman MD Protein Calorie Malnutrition has been documented in your progress note on 11/17/17 History/Risk Factors: Factor V Leyden, Hypertension Pulmonary Embolus, Clinical Indicators: Patient developed abdominal pain. He has no history of pancreatitis. He states he does not drink any alcohol. Labs: Albumin3.4, 3.0, 2.5, 2.4. Total Protein 5.7. 5.3, 4.5, 4.5 Nutrition Intake: Good 75-100 &% consumed. Treatment: Dietary Consult: Yes: no nutrition diagnosis at this time Low-Fat diet Lab monitoring: In your professional opinion, can you please clarify if these findings signify one of the following conditions? Mild Protein-Calorie Malnutrition Moderate Protein-Calorie Malnutrition Severe Protein-Calorie malnutrition Other condition, please specify Unable to determine Please continue to document in your progress notes and discharge summary in order to capture severity of illness and risk of mortality. Include clinical findings that support your diagnosis. MTDD
--- NOTE | 2017-11-22 14:49 | P.PN ---
Subjective Progress Note Date: 11/22/17 This is a 77-year-old gentleman who was initially seen in consultation by Dr. VC Sepulveda. He had an episode of a tachycardia which is the reason a consultation was requested. He presented initially to [facility] with symptoms of abdominal pain and was found to have pancreatitis. Patient was seen and examined this morning, complaining of some abdominal discomfort, he states he moved his bowels but only a very small amount. Patient 's rate this morning was noted to be in the 120 range, echocardiogram with Doppler study revealed a normal left ventricular systolic function. 11/21/2017 Patient seen and examined this morning, abdominal discomfort is much improved, he did have a significant bowel movement yesterday. He's complaining of discomfort today from gout. His heart rate this morning in the 1:30 range. We will add verapamil 80 mg one tablet by mouth 3 times a day to his medication regime. 11/22/2017 Patient was seen and examined this morning, feeling significantly better overall. Denies any abdominal discomfort, heart rate today is in the 70s to 80s. Blood pressure 132/68. Objective - Vital Signs Vital signs: Vital Signs Temp 97.5 F L 11/22/17 12:00 Pulse 82 11/22/17 12:00 Resp 18 11/22/17 12:00 BP 130/68 11/22/17 12:00 Pulse Ox 98 11/22/17 12:00 Intake & Output 11/21/17 11/22/17 11/22/17 18:59 06:59 18:59 Intake Total 2520 560 480 Output Total 1300 Balance 1220 560 480 Weight 110.8 kg 109.7 kg Intake: Intake, IV Titration 600 Amount Sodium Chloride 0.9% 1, 600 000 ml @ 100 mls/hr IV . Q10H [facility] Rx#:[id number] Oral 1920 560 480 Output: Urine 1300 Other: Voiding Method Urinal Urinal Urinal # Voids 3 - Exam GENERAL EXAM: Alert, active, comfortable in no apparent distress. HEAD: Normocephalic. EYES: Normal reaction of pupils, equal size. NOSE: Clear with pink turbinates. THROAT: No erythema or exudates. NECK: No masses, no JVD. CHEST: No chest wall deformity. LUNGS: Equal air entry with crackles in the posterior bases. Diminished.. CVS: S1 and S2 normal with no audible murmur, regular rhythm. Tachycardic. ABDOMEN: No hepatosplenomegaly, normal bowel sounds, no guarding or rigidity. Generalized tenderness SPINE: No scoliosis or deformity SKIN: No rashes CENTRAL NERVOUS SYSTEM: No focal deficits, tone is normal in all 4 extremities. EXTREMITIES: There is no peripheral edema. No clubbing, no cyanosis. Peripheral pulses are intact. - Labs CBC & Chem 7: 11/20/17 10:23 11/18/17 09:42 Assessment and Plan Plan: Assessment and plan #1 acute pancreatitis #2 atrial tachycardia #3 factor V Leiden deficiency #4 obstructive sleep apnea #5 obesity #6 hypertension 7 acid reflux Plan Cardiology's perspective, we'll recommend to continue the patient on his current medications. He will follow-up with his own photonic laboratory technician on discharge from the hospital. DNP note has been reviewed, I agree with a documented findings and plan of care. Patient was seen and examined.
[2017-11-22] MEDS: RIVAROXABAN 20 MG TAB PO SCH (19:50)
[2017-11-22] MEDS: FENOFIBRATE 160 MG TAB PO SCH (19:50)
--- NOTE | 2017-11-22 22:47 | PN ---
PROGRESS NOTE SUBJECTIVE: This is a 77-year-old white male with acute pancreatitis, atrial fibrillation, rapid ventricular response. He is now on Tenormin 75 t.i.d., Cardizem 360 daily. Patient's heart rate is more controlled. He will be possibly discharged home in the morning. Vital signs stable. Afebrile. CARDIOVASCULAR: Irregularly irregular rhythm. LUNGS: Clear. GI: Soft. HEMATOLOGY: Negative Homans. ASSESSMENT: 1. Acute pancreatitis. 2. Atrial fibrillation, rapid ventricular response. 3. Hypertension. 4. Obesity .. Please see further orders. Possible discharge home soon. MMODL / IJN: [id number] /
[2017-11-23] MEDS: methylPREDNISolone SOD SUCCI 125 MG/2 ML VIAL IV SCH ×2 (02:49→08:23)
[2017-11-23] MEDS: SODIUM CHLORIDE 0.9% 1,000 ML IV SCH ×2 (02:49→08:23)
[2017-11-23] MEDS: PANTOPRAZOLE 40 MG TABLET PO SCH (06:50)
[2017-11-23 08:11] VITALS: TEMP 96.7
[2017-11-23] MEDS: COLCHICINE 0.6 MG EACH PO SCH (08:22)
[2017-11-23] MEDS: METOPROLOL TARTRATE 50 MG TAB PO SCH ×2 (08:22→17:19)
[2017-11-23] MEDS: LOSARTAN 50 MG TAB PO SCH (08:22)
[2017-11-23] MEDS: FUROSEMIDE 20 MG TAB PO SCH (08:22)
[2017-11-23] MEDS: FOLIC ACID 1 MG TAB PO SCH (08:22)
[2017-11-23] MEDS: FERROUS SULFATE 325 MG TAB PO SCH (08:23)
[2017-11-23] MEDS ORDERED: VERAPAMIL SR 180 MG TABLET.ER PO SCH (09:00)
--- NOTE | 2017-11-23 12:48 | P.PN ---
Subjective Progress Note Date: 11/23/17 This is a 77-year-old gentleman who was initially seen in consultation by Dr. VC Sepulveda. He had an episode of a tachycardia which is the reason a consultation was requested. He presented initially to [facility] with symptoms of abdominal pain and was found to have pancreatitis. Patient was seen and examined this morning, complaining of some abdominal discomfort, he states he moved his bowels but only a very small amount. Patient 's rate this morning was noted to be in the 120 range, echocardiogram with Doppler study revealed a normal left ventricular systolic function. 11/21/2017 Patient seen and examined this morning, abdominal discomfort is much improved, he did have a significant bowel movement yesterday. He's complaining of discomfort today from gout. His heart rate this morning in the 1:30 range. We will add verapamil 80 mg one tablet by mouth 3 times a day to his medication regime. 11/22/2017 Patient was seen and examined this morning, feeling significantly better overall. Denies any abdominal discomfort, heart rate today is in the 70s to 80s. Blood pressure 132/68. 11/23/2017 Patient seen and examined this morning, heart rate mainly in the 90s, at times it jumps up to 1:30 but comes right back down to the 90 range. Patient feels well and anticipate spending discharged home today. Objective - Vital Signs Vital signs: Vital Signs Temp 96.7 F L 11/23/17 08:00 Pulse 130 H 11/23/17 08:00 Resp 18 11/23/17 08:00 BP 133/68 11/23/17 08:00 Pulse Ox 95 11/23/17 08:00 Intake & Output 11/22/17 11/23/17 11/23/17 18:59 06:59 18:59 Intake Total 960 240 Output Total 500 1000 325 Balance 460 -1000 -85 Weight 108.2 kg Intake: Oral 960 240 Output: Urine 500 1000 325 Other: Voiding Method Urinal Urinal Urinal # Voids 1 1 # Bowel Movements 0 - Exam GENERAL EXAM: Alert, active, comfortable in no apparent distress. HEAD: Normocephalic. EYES: Normal reaction of pupils, equal size. NOSE: Clear with pink turbinates. THROAT: No erythema or exudates. NECK: No masses, no JVD. CHEST: No chest wall deformity. LUNGS: Equal air entry with crackles in the posterior bases. Diminished.. CVS: S1 and S2 normal with no audible murmur, regular rhythm. Tachycardic. ABDOMEN: No hepatosplenomegaly, normal bowel sounds, no guarding or rigidity. Generalized tenderness SPINE: No scoliosis or deformity SKIN: No rashes CENTRAL NERVOUS SYSTEM: No focal deficits, tone is normal in all 4 extremities. EXTREMITIES: There is no peripheral edema. No clubbing, no cyanosis. Peripheral pulses are intact. - Labs CBC & Chem 7: 11/20/17 10:23 11/18/17 09:42 Assessment and Plan Plan: Assessment and plan #1 acute pancreatitis #2 atrial tachycardia #3 factor V Leiden deficiency #4 obstructive sleep apnea #5 obesity #6 hypertension 7 acid reflux Plan Cardiology's perspective, we'll recommend to continue the patient on his current medications. He will follow-up with his own knapsack sprayer on discharge from the hospital. DNP note has been reviewed, I agree with a documented findings and plan of care. Patient was seen and examined.
[2017-11-23] MEDS: CHOLECALCIFEROL 1,000 UNIT TAB PO SCH (12:50)
[2017-11-23 13:07] LABS: Basophils % (A) 0 %; Eosinophils % (A) 0 %; HCT 38.8 % (39.0-53.0); HGB 12.2 gm/dL (13.0-17.5); Hypochromasia Slight; Lymphocytes # (A) 0.7 k/uL (1.0-4.8); Lymphocytes % (A) 4 %; MCH 29.9 pg (25.0-35.0); MCHC 31.4 g/dL (31.0-37.0); MCV 95.1 fL (80.0-100.0); Mean Platelet Volume 7.9; Monocytes # (A) 0.5 k/uL (0-1.0); Monocytes % (A) 3 %; Neutrophils # (A) 17.5 k/uL (1.3-7.7); Neutrophils % (A) 93 %; Platelet Count 424 k/uL (150-450); RBC 4.08 m/uL (4.30-5.90); RDW 14.1 % (11.5-15.5); WBC 18.9 k/uL (3.8-10.6)
[2017-11-23 13:14] LABS: Calcium 8.8 mg/dL (8.4-10.2); Potassium 5.1 mmol/L (3.5-5.1)
[2017-11-23 13:24] VITALS: BP 116/69; PULSE 67; RESP 20
--- NOTE | 2017-11-23 14:26 | CDI ---
Last Revision, March 2017 Documentation Clarification Form Date: 11/20/2017 1:57:40 PM From: Lolis Mercado RN, CCDS Admit Date: 11/15/2017 11:21:00 AM Patient Name: Joe Arango Visit Number: [id number] Discharge Date: ATTENTION: The Clinical Documentation Specialists (CDI) and [facility] Coding Staff appreciate your assistance in clarifying documentation. Please respond to the clarification below the line at the bottom and electronically sign. The CDI & [facility] Coding staff will review the response and follow-up if needed. Please note: Queries are made part of the Legal Health Record. If you have any questions, please contact the author of this message via ITS. Brody Atkinson MD Conflicting documentation has been found in the medical record. On 11/18/17 and ongoing progress notes has tachycardia with atrial fibrillation 11/19/17 Cardiology ongoing progress notes has atrial tachycardia History/Risk Factors: Hypertension, GERD, Factor V Leyden Clinical Indicators: presented as transfer for duodenitis and pancreatitis. episode of tachycardia. per cardiology EKG was done which is suggestive of atrial tachycardia. ECHO: Atrial fibrillation, EF 50-55 % Cardiology 11/20/15: Impression: the patient has evidence of superventricular tachycardia which most likely is atrial tachycardia. AV nirmal reentry tachycardia cannot be entirely excluded. Treatment: Adenocard IVP Rythmol PO Cardizem drip Telemetry/Monitor unit In your opinion what is the most clinically appropriate diagnosis for this patient? Atrial Fibrillation ( specify type) Atrial Tachycardia Other explanation of clinical findings Unable to determine (no explanation for clinical findings) Please continue to document in your progress notes and discharge summary in order to capture severity of illness and risk of mortality. Include clinical findings that support your diagnosis. MTDD
--- NOTE | 2017-11-23 15:31 | P.PN ---
Progress Note - Text Progress Note Date: 11/23/17 Patient seen and evaluated. He is ready for discharge per primary team. He denies any abdominal pain. Patient will follow-up as outpatient.
--- NOTE | 2017-11-23 16:21 | DS ---
DISCHARGE SUMMARY DISCHARGE DIAGNOSES: 1. Acute pancreatitis due to unclear etiologies. 2. Atrial tachycardia. 3. Factor V Leiden deficiency. 4. Obstructive sleep apnea. 5. Obesity. 6. Hypertension. 7. Gastroesophageal reflux disease. Diet regular. Ambulate as tolerated with physical therapy. Medications include: 1. Colcrys 0.6 mg daily for gout. 2. Lopressor 50 t.i.d. 3. Verapamil SR 360 daily. 4. Vitamin B complex daily. 5. Xarelto 20 mg daily. 6. Vitamin D3 2000 units daily. 7. Iron sulfate 325 b.i.d. 8. Fenofibrate 145 mg daily. 9. Folic acid 0.8 mg daily. 10.Tylenol 650 q.6 hours p.r.n. 11.Cozaar 50 mg daily. 12.Lasix 20 mg daily. HOSPITAL COURSE: This is a 77-year-old white male who came in with pancreatitis. Clear liquid diet was given. CT scan of the abdomen showed no gallbladder disease. Patient continued bowel rest. He developed atrial tachycardia, for which he was placed on increasing Lopressor and Isoptin to control rate. He developed acute gout attack. He was given Colcrys. The patient developed generalized weakness, at which time he will need physical therapy to increase his strength. Following his atrial tachycardia, lipase is down to normal on discharge. He is on Colcrys for gout. Two to three days prior to discharge his Allopurinol was stopped due to acute gout attack. He will follow up as an outpatient in the rehab center for rehab. CONDITION: Stable. PROGNOSIS: Guarded. MMODL / IJN: [id number] /
== END 2017-11-23 18:30 | disposition home or self-care (01) | DRG 439 ==
LOC: EC 10:24 → 4MS4W 11:21 → 6SEL 11-18 14:29
PROVIDERS: ADMIT Family Medicine; ATTEND Family Medicine
DX: K85.90 Acute pancreatitis without necrosis or infection, unspecified (principal); D68.2 Hereditary deficiency of other clotting factors; D68.51 Activated protein C resistance; E46 Unspecified protein-calorie malnutrition; I47.1 Supraventricular tachycardia; D64.9 Anemia, unspecified; E66.9 Obesity, unspecified; Z68.34 Body mass index [BMI] 34.0-34.9, adult; E78.5 Hyperlipidemia, unspecified; E83.51 Hypocalcemia; E87.70 Fluid overload, unspecified; F40.240 Claustrophobia; G47.33 Obstructive sleep apnea (adult) (pediatric); Z99.89 Dependence on other enabling machines and devices; I10 Essential (primary) hypertension; I48.91 Unspecified atrial fibrillation; K21.9 Gastro-esophageal reflux disease without esophagitis; K29.80 Duodenitis without bleeding; K44.9 Diaphragmatic hernia without obstruction or gangrene; K59.00 Constipation, unspecified; M10.9 Gout, unspecified; Z79.01 Long term (current) use of anticoagulants; Z79.899 Other long term (current) drug therapy; Z80.9 Family history of malignant neoplasm, unspecified; Z82.49 Family history of ischemic heart disease and other diseases of the circulatory system; Z86.711 Personal history of pulmonary embolism; Z86.718 Personal history of other venous thrombosis and embolism; Z90.49 Acquired absence of other specified parts of digestive tract; Z98.41 Cataract extraction status, right eye
CPT/HCPCS: 71046; 71275; 74177; 80048; 80053; 80061; 80074; 82105; 82150; 82787; 83690; 85025; 85379; 85610; 86038; 86301; 93005; 93306; 96374; 96375; 99285